=== PATIENT | female | born 1955 | race Caucasian/White ===

== ENCOUNTER 2020-01-03 14:53 | IRF | payer MEDICARE, MEDICAID, SELFPAY ==
--- NOTE | ~2020-01-03 | XR_ITS ---
EXAMINATION: XR chest 2V DATE: 01/12/2020 11:15 INDICATION: Crackles, recent open heart surgery TECHNIQUE: AP and lateral views of the chest are obtained. COMPARISON: 01/03/2020 FINDINGS: Airspace linear airspace opacity of the left upper lobe persists without significant change . There is also linear opacity in the right lower lobe. No pleural effusion or pneumothorax is identi fied. Median sternotomy wires and mediastinal surgical clips are seen, likely from prior coronary art carey bypass grafting. Cholecystectomy clips are noted. There are healed left-sided rib fractures. Ther e is moderate thoracic spondylosis. IMPRESSION: 1. Linear airspace opacities of the left upper lobe and right lower lobe, consistent with atelectasis . Reviewed, dictated and finalized at location A. IMPRESSION: 1. Linear airspace opacities of the left upper lobe and right lower lobe, consi stent with atelectasis.
--- NOTE | ~2020-01-03 | XR_ITS ---
XR chest 1V portable 01/03/2020 20:30 Indication: PICC line placement. Recent heart surgery. Procedure: AP portable chest Comparison: Comparison to multiple prior studies sequentially, with oldest reviewed study dated 12/2008. Findings: Cardiomegaly. Status post median sternotomy for CABG. Central venous catheter tip in the le ft subclavian vein. There is left perihilar and bibasilar airspace disease. No pleural effusion or pn eumothorax. Impression: 1: Left perihilar and bibasilar airspace disease, suspicious for pneumonia. 2: Central venous catheter tip in the left subclavian vein. 3: Cardiomegaly. Reviewed, dictated and finalized at location A. Impression: 1: Left perihilar and bibasilar airspace disease, suspicious for pneumonia. 2: Central venous catheter tip in the left subclavian vein. 3: Cardiomegaly.
[2020-01-03 14:53] VITALS: BP 117/70; PULSE 92; RESP 20; TEMP 36.8; O2SAT 97; BMI 23.3
--- NOTE | 2020-01-03 14:55 | ADMGEN ---
This patient, Queenie Ambriz, was admitted to [facility] Room 221-02. Patient/family oriented to hospital policies and general routines including ID bracelet, bed and alarms, visiting hours, pain management, procedures, bathroom and other care routines, personal items, smoking policy, room service/diet, and visiting hours. Valuables list has been completed. Information on how to activate the Rapid Response Team has been discussed. Patient/Family are encouraged to report perceived risks to care and to ask questions if they do not understand what they are told or what they should do.
--- NOTE | 2020-01-03 15:54 | PC.NURSE ---
Called [facility] at [phone] at [phone] regarding cardiology consult for patient. [place] stated to fax request to [phone] Tabitha Ramachandran was currently bonderizer operator. Faxed request at [phone] this date.
[2020-01-03 19:20] VITALS: O2SAT 97
[2020-01-03] MEDS: QUEtiapine FUMARATE 100 MG TABLET 400 MG PO (21:29)
[2020-01-03] MEDS: MICONAZOLE NITRATE 2% CREAM 30 GM TUBE 1 APPLIC TOPICAL (21:29)
[2020-01-03] MEDS: clonazePAM 0.5 MG TABLET 1 MG PO (21:29)
[2020-01-03] MEDS: ENOXAPARIN 40 MG/0.4 ML SYRINGE SUB-Q (21:29)
[2020-01-03] MEDS: MELATONIN 3 MG TABLET 6 MG PO (21:29)
[2020-01-03] MEDS: CYCLOBENZAPRINE HCL 5 MG TABLET PO (21:30)
[2020-01-03] MEDS: NAPROXEN 500 MG TABLET PO (21:30)
[2020-01-03] MEDS: busPIRone HCL 5 MG TABLET 15 MG PO (21:31)
[2020-01-03] MEDS: metFORMIN HCL 500 MG TABLET PO (21:31)
[2020-01-03] MEDS: GABAPENTIN 400 MG CAPSULE 800 MG PO (21:31)
[2020-01-03] MEDS: guaiFENesin 12 HR 600 MG TABCR PO (21:32)
[2020-01-03 21:55] VITALS: BP 126/74; PULSE 78; RESP 18; TEMP 35.5; O2SAT 98
[2020-01-04 04:47] LABS: Add Urine Microscopic? YES; Appearance Urine Clear (Clear); Bacteria Urine Trace /hpf; Bilirubin Urine Negative (Negative); Blood Urine 2+ (Negative); Color Urine Yellow (Yellow); Glucose Urine UA Negative (Negative); Ketones Urine Negative (Negative); Leukocyte Esterase Ur 2+ LEU/UL (Negative); Mucus Urine Rare /lpf; Nitrate Urine Negative (Negative); Protein Urine Negative (Negative); Specific Grav Ur 1.012 (1.001-1.035); Urobilinogen Urine Negative mg/dL (<2.0); WBC Urine 21-30 /hpf
[2020-01-04 05:29] LABS: Basophils Absolute Auto 0.1 K/mm3 (0.0-0.1); Eosinophils Absolute Auto 0.4 K/mm3 (0-0.3); Eosinophils Percent Auto 4.4 % (0-4.4); Hematocrit 28.4 % (37.0-47.0); Hemoglobin 8.5 g/dL (12.0-15.0); Immature Granulocyte Absolute 0.37 K/mm3 (0.00-0.031); Immature Granulocyte Percent A 4.5 % (0-0.5); Lymphocytes Absolute Auto 2.38 K/mm3 (0.9-3.2); Mean Corpuscular HGB Conc 29.9 g/dl (32-36); Mean Corpuscular Hemoglobin 26.6 pg (26-34); Mean Platelet Volume 8.9 fl (7.4-10.4); Monocytes Absolute Auto 0.7 K/mm3 (0.1-0.6); Monocytes Percent Auto 8.9 % (2.6-8.5); Neutrophils Absolute Auto 4.3 K/mm3 (1.3-6.7); Neutrophils Percent Auto 52.2 % (45.5-73.1); Platelet Count Result 267 k/mm3 (150-375); Red Blood Count 3.19 M/mm3 (4.2-5.4); Red Cell Distribution Width 17.8 % (11.5-14.5); White Blood Count 8.2 K/mm3 (4.5-10.0)
[2020-01-04 05:37] VITALS: BP 96/54; PULSE 78; RESP 18; TEMP 35.2; O2SAT 98
[2020-01-04 05:43] LABS: Macrocytosis 1+ (NORMAL); Platelet Estimate Adequate (Adequate)
[2020-01-04 05:44] LABS: Hypochromasia 1+ (NORMAL); Microcytosis 1+ (NORMAL)
[2020-01-04 05:45] LABS: Anion Gap 8 mmol/L (8-16); Blood Urea Nitrogen 65 mg/dL (7-17); Calcium 9.4 mg/dL (8.4-10.2); Carbon Dioxide 34 mmol/L (22-30); Chloride 92 mmol/L (98-107); Estimated CRCL calculation 40 ml/min; Estimated Glomerular Filt Rate 56; Glucose 98 mg/dL (65-105); Potassium 4.1 mmol/L (3.4-5.0); Sodium 134 mmol/L (137-145)
[2020-01-04] MEDS: busPIRone HCL 5 MG TABLET 15 MG PO ×3 (05:51→21:49)
[2020-01-04 08:00] VITALS: O2SAT 98
[2020-01-04] MEDS: metFORMIN HCL 500 MG TABLET PO ×2 (08:47→17:23)
[2020-01-04] MEDS: FUROSEMIDE 40 MG TABLET PO (08:48)
[2020-01-04] MEDS: NAPROXEN 500 MG TABLET PO ×2 (08:48→17:23)
[2020-01-04] MEDS: EZETIMIBE 10 MG TABLET PO (08:48)
[2020-01-04] MEDS: SPIRONOLACTONE 25 MG TABLET PO (08:49)
[2020-01-04] MEDS: SERTRALINE HCL 50 MG TABLET 100 MG PO (08:49)
[2020-01-04] MEDS: QUEtiapine FUMARATE 100 MG TABLET 400 MG PO ×2 (08:49→21:49)
[2020-01-04] MEDS: guaiFENesin 12 HR 600 MG TABCR PO ×2 (08:49→21:50)
[2020-01-04 08:50] VITALS: PULSE 76
[2020-01-04] MEDS: AMIODARONE HCL 200 MG TABLET PO (08:50)
[2020-01-04] MEDS: GABAPENTIN 400 MG CAPSULE 800 MG PO ×3 (08:50→17:23)
[2020-01-04] MEDS: MICONAZOLE NITRATE 2% CREAM 30 GM TUBE 1 APPLIC TOPICAL ×2 (08:51→21:50)
[2020-01-04] MEDS: COD LIVER OIL/ZINC OXIDE OINT 30 GM 1 APPLIC TOPICAL (08:51)
[2020-01-04] MEDS: MIDODRINE HCL 10 MG TABLET PO ×3 (08:51→17:23)
[2020-01-04] MEDS: CHOLECALCIFEROL 1,000 UNITS TABLET 1000 UNITS PO (09:19)
--- NOTE | 2020-01-04 10:00 | WPDREHABHP ---
H&P: HPI History of Present Illness Date/Time: 01/04/20 13:02 Chief complaint: ACUUTE HYPOXEMIA RESPIRATORY FAILURE Narrative: Queenie Ambriz is a 64 year old female HISTORY OF PRESENT ILLNESS: The patient's primary rehab impairment category is Fifteen-pulmonary The etiologic diagnosis is status post acute hypoxemic respiratory failure I saw this patient [id number] on January 04, 2020 at 10:00 a.m. The patient is a 64-year-old right-handed woman with a past medical history of chronic obstructive pulmonary disease, diabetes mellitus type 2, emphysema, pulmonary fibrosis, depression, and hypertension who presented to local [facility] with increased shortness of breath. According to her daughter that was the [facility] when she presented initially which was a few weeks ago. The patient was found to have a pericardial effusion. She was transferred to a tertiary hospital where a pericardial window was performed. She also had a right-sided pleural effusion and chest tube was placed. She was stabilized and transferred to [facility] for continuation of medical management on December 20, 2019. The patient's hospitalization was significant for acute respiratory failure, pleural effusion, pericardial effusion, atrial fibrillation, uncontrolled diabetes mellitus, chronic pain due to spinal stenosis, congestive heart failure with diastolic dysfunction, depression, hyperlipidemia, vitamin-D deficiency and generalized weakness from prolonged hospitalization. The patient's chest tube was removed on December 26, 2019. Oxygen has been weaned as tolerated and currently on 2 liters of nasal cannula and she is receiving p.r.n. nebulized bronchodilator. Atrial fibrillation is being managed with the amiodarone and she also is on midodrine which most likely is for postural hypotension. She is on spironolactone to manage congestive heart failure and edema. The patient was placed on sliding-scale insulin to control hyperglycemia in the setting of steroid use. Depression has been going for 40 years the patient has never been hospitalized for this and is on rather large doses of Seroquel and BuSpar at home. Hyperlipidemia is being treated with Zetia. She requires a physical and occupational therapy to increase her and independence with ADLs functional transfers and mobility. She is on subcutaneous Lovenox for DVT prophylaxis. Therapy was initiated at the acute care facility and the patient transferred to us from [facility] on January 03, 2020 The patient has not traveled outside the [place] or had contact with someone who is ill that has traveled outside the [place] in the past 21 days. The patient has not traveled to an area of the [place] that is experiencing no transmission of the Coronavirus and has not had close personal contact with anyone that has. The patient does not have a fever. The patient is not experiencing low respiratory illness symptoms. FALLS OR SURGERIES: The patient has had major surgeries in the 100 days prior to admission. They had no falls in the past year. They had no falls with injury in the past year. PAST MEDICAL HISTORY: Pericardial effusion, chronic obstructive pulmonary disease, obstructive sleep apnea, [id number] diabetes mellitus, hypertension, cervical spine stenosis, chronic pain syndrome, anemia, atrial fibrillation, congestive heart failure and sacral stenosis. Patient's daughter mentions that the patient has taken in the past narcotic analgesic and at times has abused she also mentions that she has suffered from longstanding depression which I see she is on large doses of Seroquel PAST SURGICAL HISTORY: hysterectomy, cholecystectomy, shoulder surgery, ankle surgery, hip surgery, and recent pericardial window the scar of which is visible on physical examination SOCIAL HISTORY: patient is . Lives with sons in [facility]. She has 3 sons 4 grandchil
[2020-01-04 13:22] VITALS: BMI 23.3
[2020-01-04 13:49] LABS: Glucose Point of Care 106 (65-105)
[2020-01-04] MEDS: NITROFURANTOIN MONOHYD MACROCR 100 MG CAP PO ×2 (13:59→22:18)
[2020-01-04 14:00] VITALS: BP 101/61; PULSE 97; RESP 18; TEMP 36.4; O2SAT 100
--- NOTE | 2020-01-04 14:29 | WPDCN ---
Assessment and Plan Assessment and plan (1) Pericardial effusion: Code(s): I31.3 - Pericardial effusion (noninflammatory) Status: Acute Assessment and Plan: Patient had terrible problems with recurrent pericardial effusions in the setting of pneumonia ultimately requiring pericardiectomy, and even with that had prolonged drainage from the chest tube. Cytology negative, thought to be inflammatory in nature. Taking naproxen as an anti-inflammatory. No evidence of recurrence. Overall the patient appears stable and euvolemic. Chest x-ray looks relatively good. Agree with current medications. Follow electrolytes periodically. Will follow with you. Thank you for your consult. (2) H/O pericardiectomy: Code(s): Z98.890 - Other specified postprocedural states Status: Acute Assessment and Plan: sternal wound is well healed (3) Pleural effusion: Code(s): J90 - Pleural effusion, not elsewhere classified Status: Acute Assessment and Plan: Recurrent parapneumonic pleural effusions treated with chest tube drainage Resolved . (4) Congestive heart failure with left ventricular diastolic dysfunction: Code(s): I50.30 - Unspecified diastolic (congestive) heart failure Status: Acute Assessment and Plan: History of diastolic heart failure. Euvolemic taking spironolactone and furosemide 40 mg daily. (5) Chronic obstructive pulmonary disease: Code(s): J44.9 - Chronic obstructive pulmonary disease, unspecified Status: Acute Assessment and Plan: COPD and pulmonary fibrosis, currently on O2. (6) Encephalopathy: Code(s): G93.40 - Encephalopathy, unspecified Status: Acute Assessment and Plan: Encephalopathy. (7) PAF (paroxysmal atrial fibrillation): Code(s): I48.0 - Paroxysmal atrial fibrillation Status: Acute Assessment and Plan: History of at least 1 episode of AFib during hospitalizations, treated with amiodarone and in sinus rhythm. Anticoagulation is being avoided because of pericarditis. (8) Low blood pressure: Code(s): I95.9 - Hypotension, unspecified Status: Acute Assessment and Plan: Blood pressure is acceptable on midodrine. Hopefully will improve with time. HPI Data of Consult Date/Time: 01/04/20 14:29 Requesting Physician: Juan Peace MD Primary Care Provider: UNKNOWN,DOCTOR Consult Narrative Narrative: Date of service: 01/04/2020 Queenie Ambriz is a 64 year old female whom we were asked to see at the request of Dr. Peace for advice and opinion regarding ongoing care of her pericardectomy for recurrent pericardial effusions. The patient presented to [facility] shortness of breath, left lower lobe pneumonia, small bowel obstruction and pericardial effusion November 14. She had a pericardial drain placed on November 16. She was transferred to [facility] on November 17 further care. She had a pericardial window placed for recurrent pericardial effusion, and eventually had a pericardiectomy December 01, 2019 for recurrent pericardial effusion. She also had a right thoracentesis on 11/30/2019 (transudative) for pleural effusions. Cytology was negative, pericardial fluid was inflammatory/also described as purulent. She was treated with anti-inflammatory meds. Apparently because the pericardial tube And the chest tube continued to drain for a week she was transferred to [facility] where the chest tube was pulled, and then transferred to [facility] for rehab. She has had CHF; She had at least 1 episode of atrial fibrillation treated with amiodarone and previously metoprolol during the recent hospitalizations. Ant
[2020-01-04 20:10] VITALS: O2SAT 92
[2020-01-04] MEDS: MELATONIN 3 MG TABLET 6 MG PO (21:50)
[2020-01-04] MEDS: clonazePAM 0.5 MG TABLET 1 MG PO (21:50)
[2020-01-04] MEDS: ENOXAPARIN 40 MG/0.4 ML SYRINGE SUB-Q (21:50)
[2020-01-04] MEDS: CYCLOBENZAPRINE HCL 5 MG TABLET PO (21:51)
[2020-01-04 22:00] VITALS: BP 101/48; PULSE 91; RESP 18; TEMP 36.2; O2SAT 96
--- NOTE | 2020-01-05 02:52 | PC.NURSE ---
pt noted to have very long toe nails that are intact at this time.
[2020-01-05] MEDS: busPIRone HCL 5 MG TABLET 15 MG PO ×3 (05:20→21:10)
[2020-01-05 06:00] VITALS: BP 100/62; PULSE 76; RESP 20; TEMP 36.6; O2SAT 100
[2020-01-05 06:57] LABS: Glucose Point of Care 112 (65-105)
[2020-01-05 09:00] VITALS: O2SAT 94
[2020-01-05] MEDS: CHOLECALCIFEROL 1,000 UNITS TABLET 1000 UNITS PO (09:25)
[2020-01-05] MEDS: SPIRONOLACTONE 25 MG TABLET PO (09:25)
[2020-01-05] MEDS: NAPROXEN 500 MG TABLET PO ×2 (09:25→17:10)
[2020-01-05] MEDS: SERTRALINE HCL 50 MG TABLET 100 MG PO (09:25)
[2020-01-05] MEDS: metFORMIN HCL 500 MG TABLET PO ×2 (09:25→17:10)
[2020-01-05 09:26] VITALS: PULSE 90
[2020-01-05] MEDS: NITROFURANTOIN MONOHYD MACROCR 100 MG CAP PO ×2 (09:26→21:14)
[2020-01-05] MEDS: AMIODARONE HCL 200 MG TABLET PO (09:26)
[2020-01-05] MEDS: EZETIMIBE 10 MG TABLET PO (09:26)
[2020-01-05] MEDS: MICONAZOLE NITRATE 2% CREAM 30 GM TUBE 1 APPLIC TOPICAL ×2 (09:27→21:14)
[2020-01-05] MEDS: guaiFENesin 12 HR 600 MG TABCR PO ×2 (09:27→21:15)
[2020-01-05] MEDS: MIDODRINE HCL 10 MG TABLET PO ×3 (09:27→17:12)
[2020-01-05] MEDS: GABAPENTIN 400 MG CAPSULE 800 MG PO ×3 (09:27→17:10)
[2020-01-05] MEDS: QUEtiapine FUMARATE 100 MG TABLET 400 MG PO ×2 (09:28→21:11)
[2020-01-05 14:00] VITALS: BP 108/59; PULSE 89; RESP 20; TEMP 36.4; O2SAT 99
--- NOTE | 2020-01-05 16:09 | RPD ---
INDIVIDUALIZED PLAN OF CARE FOR Queenie Ambriz Brief Synthesis of Pre-Admission Screen, Post-Admission Evaluation and Therapy Evaluations: The patient presents to rehab with acute hypoxemic respiratory failure. Comorbidities include right pneumothorax, pleural effusion, pericardial effusion with tamponade, severe chronic obstructive pulmonary disease, chronic systolic heart failure, secondary pulmonary hypertension, uncontrolled diabetes mellitus, emphysema, pulmonary fibrosis, pericardial window, depression, chest tube insertion and removal, atrial fibrillation, chronic pain due to spinal stenosis, congestive heart failure with diastolic dysfunction, hyperlipidemia, vitamin D deficiency, and generalized weakness. The patient?s needs will be best met in an intensive program vs. at a lower level of care. The patient requires physician services for medical oversight, management of post-procedure complications in setting of present comorbidities, and pain management. The patient requires nursing services for anticoagulation therapy, diabetes training, DVT prophylactics, infection protection, medication management and education, pressure relief, and wound care. Deficits include:ADLs, Balance, Endurance, Family Training/Education, Mobility, Pain Management, ROM, Safety, Strength, and Transfers Extension Service Specialist/Case Management for: Discharge Planning and Patient/Family Counseling Physical Therapy: 5 days per week for 90 minutes. Treatments may include: Therapeutic Exercise, Gait Training, Neuromuscular Re-education, Transfer Training, Community Reintegration, Bed Mobility, Patient/Family Education, Wheelchair Mobility Group Therapy/Concurrent Therapy Rationales: -Improve attention span during functional activities in a distracted environment. -Enhance problem solving and/or adequate judgment skills during functional activities in a distracted environment. -Promote increased safety awareness in a distracted environment to reduce fall risk with functional tasks, transfers, and ambulation to allow a more safe, self-sufficient return to the home environment. -Improve dynamic balance skills to promote safety and independence with functional activities in a distracted environment for maximum gain. Occupational Therapy: 5 days per week for 90 minutes. Treatments may include: Therapeutic Exercise, Therapeutic Activity, Cognitive Training, Self-Care Transfer Training, Community Reintegration, Home Management, Patient/Family Education, Wheelchair Mobility Training, Energy Conservation Training Group Therapy/Concurrent Therapy Rationales: -Allow therapist to observe and teach generalization and carry-over of skills learned in individual therapy. -Enhance problem solving and sequencing skills during therapeutic activities in a distracted environment. -Promote increased safety awareness in a realistic setting to reduce fall risk with functional tasks due to visual and verbal distractions. -Increase functional level with ADLs, ADL transfers and use of adaptive equipment through therapeutic activities with others while promoting safety to allow a more safe, self-sufficient return home. Medical Prognosis: Good Anticipated Length of Stay: 10 days Rehab Goals: Eating Goal: 06-Independent Oral Hygiene Goal: 06-Independent Toileting Hygiene Goal: 06-Independent Shower/Bathe Self Goal: 05-Setup or Clean Up Assistance Upper Body Dressing Goal: 05-Setup or Clean Up Assistance Lower Body Dressing Goal: 05-Setup or Clean Up Assistance Putting On/Taking Off Footwear Goal: 05-Setup or Clean Up Assistance Rolling Left and Right Goal: 06-Independent Sit to Lying Goal: 06-Independent Lying to Sitting on Side of Bed Goal: 06-Independent Sit to Stand Goal: 06-Independent Chair/Cwb-xm-Kjqly Transfer Goal: 06-Independent Toilet Transfer Goal: 06-Independent Car Transfer Goal: 06-Independent Walk 10' Goal: 06-Independent Walk 50' with Two Turns Goal: 04-Supervision or Touching Assistance Walk
[2020-01-05 17:06] LABS: Glucose Point of Care 88 (65-105)
--- NOTE | 2020-01-05 18:54 | PC.NURSE ---
Melara cath was removed this afternoon without difficulty, Queenie voided on the toilet afterwards with no c/o of discomfort.
[2020-01-05] MEDS: MELATONIN 3 MG TABLET 6 MG PO (21:14)
[2020-01-05] MEDS: ENOXAPARIN 40 MG/0.4 ML SYRINGE SUB-Q (21:15)
[2020-01-05] MEDS: CYCLOBENZAPRINE HCL 5 MG TABLET PO (21:15)
[2020-01-05] MEDS: SALINE LOCK FLUSH 10 ML IV PUSH (21:16)
[2020-01-05] MEDS: clonazePAM 0.5 MG TABLET 1 MG PO (21:19)
[2020-01-05 21:59] VITALS: BP 94/57; PULSE 85; RESP 20; TEMP 36.4; O2SAT 94
[2020-01-06 02:48] LABS: Glucose Point of Care 84 (65-105)
[2020-01-06] MEDS: busPIRone HCL 5 MG TABLET 15 MG PO ×3 (05:14→21:09)
[2020-01-06] MEDS: SALINE LOCK FLUSH 10 ML IV PUSH ×3 (05:15→21:11)
[2020-01-06 05:43] VITALS: BP 104/71; PULSE 117; RESP 20; TEMP 36.2; O2SAT 99
[2020-01-06 06:15] LABS: Glucose Point of Care 96 (65-105)
[2020-01-06 09:30] VITALS: O2SAT 94
[2020-01-06 09:31] LABS: Anion Gap 8 mmol/L (8-16); Blood Urea Nitrogen 58 mg/dL (7-17); Calcium 9.9 mg/dL (8.4-10.2); Carbon Dioxide 32 mmol/L (22-30); Chloride 96 mmol/L (98-107); Estimated CRCL calculation 44 ml/min; Estimated Glomerular Filt Rate > 60; Glucose 110 mg/dL (65-105); Potassium 4.8 mmol/L (3.4-5.0); Sodium 136 mmol/L (137-145)
[2020-01-06] MEDS: QUEtiapine FUMARATE 100 MG TABLET 400 MG PO ×2 (09:31→21:10)
[2020-01-06] MEDS: GABAPENTIN 400 MG CAPSULE 800 MG PO ×3 (09:31→18:52)
[2020-01-06] MEDS: metFORMIN HCL 500 MG TABLET PO ×2 (09:31→18:52)
[2020-01-06] MEDS: MIDODRINE HCL 10 MG TABLET PO ×3 (09:31→18:52)
[2020-01-06] MEDS: FUROSEMIDE 20 MG TABLET PO (09:31)
[2020-01-06 09:32] VITALS: PULSE 72
[2020-01-06] MEDS: guaiFENesin 12 HR 600 MG TABCR PO ×2 (09:32→21:07)
[2020-01-06] MEDS: CHOLECALCIFEROL 1,000 UNITS TABLET 1000 UNITS PO (09:32)
[2020-01-06] MEDS: AMIODARONE HCL 200 MG TABLET PO (09:32)
[2020-01-06] MEDS: SPIRONOLACTONE 25 MG TABLET PO (09:32)
[2020-01-06] MEDS: SERTRALINE HCL 50 MG TABLET 100 MG PO (09:32)
[2020-01-06] MEDS: NAPROXEN 500 MG TABLET PO ×2 (09:33→18:53)
[2020-01-06] MEDS: MICONAZOLE NITRATE 2% CREAM 30 GM TUBE 1 APPLIC TOPICAL ×2 (09:33→21:21)
[2020-01-06] MEDS: NITROFURANTOIN MONOHYD MACROCR 100 MG CAP PO (09:33)
[2020-01-06] MEDS: EZETIMIBE 10 MG TABLET PO (09:33)
--- NOTE | 2020-01-06 12:18 | WPDNEURORHBP ---
Subjective Date/time seen: 01/06/20 12:18 Interval history: this 64-year-old woman with a background history of psychiatric illness is here after suffering from acute hypoxemia and respiratory failure from which she is recuperating she is wearing 2 liters of oxygen she has real relatively anxious the urinalysis was suspicious for the urinary tract infection however it only grew yeast her catheter has been removed and she is urinating fairly well She denies any headache nausea vomiting chest pain shortness of breath fever chills sore throat Review of Systems Review of Systems: All systems reviewed & are unremarkable except as noted in HPI and below Functional Status Ambulation Ability Ability to Ambulate 10 Feet: Contact Guard Ability to Ambulate 50 Feet With 2 Turns: Minimum Assistance X 1 Ambulation Assistive Devices: Walker, Wheeled Exam Const: General: comfortable and no acute distress HENMT: General nose exam: Normal nares present Mouth: Yes moist mucous membranes Eyes: General: appearance normal, both eyes and all related structures Neck: Neck: supple and no JVD Resp: Other: generalize rhonchi bilaterally but better Cardio: Rate: regular rate Rhythm: regular rhythm GI: GI Palp: Yes Soft to palpation Auscultation: normal bowel sounds Skin: General skin exam: normal color and no rashes or lesions noted Neuro: Other: patient is awake and alert well oriented anxious as usual which probably is her baseline in spite of being on rather large dose of Seroquel she is able to tell me who her psychiatrist is and why she is on Seroquel Extrem: General: normal to inspection Psych: Mental Status: mental status grossly normal Objective Data Vital Signs Vital Signs: Vital Signs - 24 hr 01/05/20 14:00 01/05/20 21:59 01/06/20 05:43 Temperature 36.4 C L 36.4 C 36.2 C L Pulse Rate 89 85 117 H Respiratory Rate 20 20 20 Blood Pressure 108/59 L 94/57 L 104/71 Pulse Oximetry 99 94 99 01/06/20 09:32 Temperature Pulse Rate 72 Respiratory Rate Blood Pressure Pulse Oximetry Intake/Output Intake/Output: Intake & Output 01/03/20 01/04/20 01/05/20 01/06/20 23:59 23:59 23:59 23:59 Intake Total 360 2280 820 430 Output Total 3750 600 Balance 360 -1470 220 430 Meds/Results Medications: Active Medications Generic Name Dose Route Start Last Admin Trade Name Freq PRN Reason Stop Dose Admin Acetaminophen 325 mg 01/03/20 17:43 Tylenol Tablet PO Q4H PRN Mild Pain (1-3) or Fever Albuterol 1 puff 01/03/20 18:00 Proventil Hfa INHALATION Q6H PRN Shortness Of Breath Or Wheezing Amiodarone HCl 200 mg 01/04/20 08:00 01/06/20 09:32 Pacerone PO 200 mg DAILY@0800 PRIYA Administration Bisacodyl 10 mg 01/03/20 16:55 Dulcolax Suppository RECTAL QAM PRN Constipation Buspirone HCl 15 mg 01/03/20 22:00 01/06/20 05:14 Buspar PO 15 mg Q8HR PRIYA Administration Clonazepam 1 mg 01/03/20 21:00 01/05/20 21:19 Klonopin Tablet PO 1 mg HS PRIYA Administration Cyclobenzaprine HCl 5 mg 01/03/20 21:00 01/05/20 21:15 Flexeril PO 5 mg HS PRYIA Administration Dextrose 12.5 gm 01/04/20 13:09 Dextrose 50% Syringe IV PUSH PRN PRN Hypoglycemia Protocol Ezetimibe 10 mg 01/04/20 09:00 01/06/20 09:33 Zetia PO 10 mg QAM PRIYA Administration Enoxaparin Sodium 40 mg 01/03/20 21:00 01/05/20 21:15 Lovenox SUB-Q 40 mg HS PRIYA Administration Furosemide 20 mg 01/06/20 09:00 01/06/20 09:31 Lasix Tablet PO 20 mg DAILY PRIYA Administration Gabapentin 800 mg 01/03/20 17:00 01/06/20 09:31 Neurontin PO 800 mg TID PRIYA Administration Glucagon 1 mg 01/04/20 13:09 Glucagon For Inj IM PRN PRN Hypoglycemia Protocol Glucose 15 gm 01/04/20 13:09 Glutose 15 PO PRN PRN Hypoglycemia Protocol Guaifenesin 600 mg 01/03/20 21:00 01/06/20 09:32 Mucinex 12 Hr
[2020-01-06 14:00] VITALS: BP 102/63; PULSE 83; RESP 20; TEMP 36.3; O2SAT 100
[2020-01-06 20:43] VITALS: BP 94/73; PULSE 78; RESP 18; TEMP 36.7; O2SAT 90
[2020-01-06] MEDS: clonazePAM 0.5 MG TABLET 1 MG PO (21:07)
[2020-01-06] MEDS: CYCLOBENZAPRINE HCL 5 MG TABLET PO (21:09)
[2020-01-06] MEDS: MELATONIN 3 MG TABLET 6 MG PO (21:09)
[2020-01-06] MEDS: ENOXAPARIN 40 MG/0.4 ML SYRINGE SUB-Q (21:10)
[2020-01-07] MEDS: busPIRone HCL 5 MG TABLET 15 MG PO ×3 (05:48→20:40)
[2020-01-07] MEDS: SALINE LOCK FLUSH 10 ML IV PUSH ×3 (05:49→20:50)
[2020-01-07 06:00] VITALS: BP 99/55; PULSE 78; RESP 12; TEMP 36.4; O2SAT 99
[2020-01-07 06:53] LABS: Glucose Point of Care 69 (65-105)
[2020-01-07 09:05] VITALS: PULSE 78
[2020-01-07] MEDS: AMIODARONE HCL 200 MG TABLET PO (09:05)
[2020-01-07] MEDS: metFORMIN HCL 500 MG TABLET PO ×2 (09:05→17:49)
[2020-01-07] MEDS: CHOLECALCIFEROL 1,000 UNITS TABLET 1000 UNITS PO (09:06)
[2020-01-07] MEDS: NAPROXEN 500 MG TABLET PO ×2 (09:06→17:50)
[2020-01-07] MEDS: FUROSEMIDE 20 MG TABLET PO (09:06)
[2020-01-07] MEDS: EZETIMIBE 10 MG TABLET PO (09:06)
[2020-01-07] MEDS: GABAPENTIN 400 MG CAPSULE 800 MG PO ×3 (09:06→17:49)
[2020-01-07] MEDS: guaiFENesin 12 HR 600 MG TABCR PO ×2 (09:07→20:40)
[2020-01-07] MEDS: MIDODRINE HCL 10 MG TABLET PO ×3 (09:07→17:49)
[2020-01-07] MEDS: QUEtiapine FUMARATE 100 MG TABLET 400 MG PO ×2 (09:07→20:40)
[2020-01-07] MEDS: MICONAZOLE NITRATE 2% CREAM 30 GM TUBE 1 APPLIC TOPICAL ×2 (09:07→20:49)
[2020-01-07] MEDS: SERTRALINE HCL 50 MG TABLET 100 MG PO (09:07)
[2020-01-07] MEDS: SPIRONOLACTONE 25 MG TABLET PO (09:08)
[2020-01-07 14:00] VITALS: BP 108/64; PULSE 91; RESP 16; TEMP 36.4; O2SAT 100
[2020-01-07 16:54] LABS: Glucose Point of Care 108 (65-105)
[2020-01-07] MEDS: ENOXAPARIN 40 MG/0.4 ML SYRINGE SUB-Q (20:39)
[2020-01-07] MEDS: MELATONIN 3 MG TABLET 6 MG PO (20:39)
[2020-01-07] MEDS: CYCLOBENZAPRINE HCL 5 MG TABLET PO (20:39)
[2020-01-07] MEDS: clonazePAM 0.5 MG TABLET 1 MG PO (20:44)
[2020-01-07 21:51] VITALS: BP 128/61; PULSE 87; RESP 18; TEMP 36.5; O2SAT 99
[2020-01-08] MEDS: busPIRone HCL 5 MG TABLET 15 MG PO ×3 (05:57→21:55)
[2020-01-08] MEDS: SALINE LOCK FLUSH 10 ML IV PUSH ×3 (05:57→21:55)
[2020-01-08 06:08] VITALS: BP 100/54; PULSE 77; RESP 18; TEMP 36.3; O2SAT 100
[2020-01-08 06:47] LABS: Glucose Point of Care 89 (65-105)
[2020-01-08 08:42] VITALS: PULSE 77
[2020-01-08] MEDS: metFORMIN HCL 500 MG TABLET PO ×2 (08:42→18:56)
[2020-01-08] MEDS: AMIODARONE HCL 200 MG TABLET PO (08:42)
[2020-01-08] MEDS: FUROSEMIDE 20 MG TABLET PO (08:43)
[2020-01-08] MEDS: guaiFENesin 12 HR 600 MG TABCR PO ×2 (08:43→21:53)
[2020-01-08] MEDS: MICONAZOLE NITRATE 2% CREAM 30 GM TUBE 1 APPLIC TOPICAL ×2 (08:43→21:54)
[2020-01-08] MEDS: NAPROXEN 500 MG TABLET PO ×2 (08:43→18:56)
[2020-01-08] MEDS: EZETIMIBE 10 MG TABLET PO (08:43)
[2020-01-08] MEDS: MIDODRINE HCL 10 MG TABLET PO ×3 (08:43→18:56)
[2020-01-08] MEDS: CHOLECALCIFEROL 1,000 UNITS TABLET 1000 UNITS PO (08:43)
[2020-01-08] MEDS: GABAPENTIN 400 MG CAPSULE 800 MG PO ×3 (08:43→18:55)
[2020-01-08] MEDS: QUEtiapine FUMARATE 100 MG TABLET 400 MG PO ×2 (08:44→21:54)
[2020-01-08] MEDS: SERTRALINE HCL 50 MG TABLET 100 MG PO (08:44)
[2020-01-08] MEDS: SPIRONOLACTONE 25 MG TABLET PO (08:44)
--- NOTE | 2020-01-08 12:34 | WPDNEURORHBP ---
Subjective Date/time seen: 01/08/20 12:34 64 years old lady admitted to the rehab floor with acute hypoxemia and respiratory failure for which she is receiving 2L of oxygen course is complicated by her psych illness with ongoing fluctuating mental status on today's visit she was also complaining of left lower extremity discomfort Review of Systems Review of Systems: All systems reviewed & are unremarkable except as noted in HPI and below Functional Status Ambulation Ability Ability to Ambulate 10 Feet: Moderate Assistance X 1 Ability to Ambulate 50 Feet With 2 Turns: Minimum Assistance X 1 Ambulation Assistive Devices: Walker, Wheeled Transfers Ability Ability to Transfer In/Out of Chair: Minimum Assistance X 1 Exam Narrative: Exam Narrative: examination reveals her to be awake aler head normal neck normal ear nose throat examination normal with no drainage eye is normal with normal extraocular movements neck is supple with no meningeal signs no JVD heart regular with no murmur lungs clear to auscultation with no rhonchi or crepitations abdomen is soft with no organomegaly normal bowel sounds skin normal with no evidence of rash or skin lesions neurological is she is awake alert oriented in being in the hospital somewhat anxious and as mentioned above complaining of discomfort the movements of the left lower extremity and normal there is no obvious bruises or edema extremities otherwise normal and so as the mental statust Objective Data Vital Signs Vital Signs: Vital Signs - 24 hr 01/07/20 14:00 01/07/20 21:51 01/08/20 06:08 Temperature 36.4 C 36.5 C 36.3 C L Pulse Rate 91 87 77 Respiratory Rate 16 18 18 Blood Pressure 108/64 128/61 100/54 L Pulse Oximetry 100 99 100 01/08/20 08:42 Temperature Pulse Rate 77 Respiratory Rate Blood Pressure Pulse Oximetry Intake/Output Intake/Output: Intake & Output 01/05/20 01/06/20 01/07/20 01/08/20 23:59 23:59 23:59 23:59 Intake Total 291 425 5445 1190 Output Total 600 Balance 066 950 8445 1190 Meds/Results Medications: Active Medications Generic Name Dose Route Start Last Admin Trade Name Freq PRN Reason Stop Dose Admin Acetaminophen 325 mg 01/03/20 17:43 Tylenol Tablet PO Q4H PRN Mild Pain (1-3) or Fever Albuterol 1 puff 01/03/20 18:00 Proventil Hfa INHALATION Q6H PRN Shortness Of Breath Or Wheezing Amiodarone HCl 200 mg 01/04/20 08:00 01/08/20 08:42 Pacerone PO 200 mg DAILY@0800 PRIYA Administration Bisacodyl 10 mg 01/03/20 16:55 Dulcolax Suppository RECTAL QAM PRN Constipation Buspirone HCl 15 mg 01/03/20 22:00 01/08/20 05:57 Buspar PO 15 mg Q8HR PRIYA Administration Clonazepam 1 mg 01/03/20 21:00 01/07/20 20:44 Klonopin Tablet PO 1 mg HS PRIYA Administration Cyclobenzaprine HCl 5 mg 01/03/20 21:00 01/07/20 20:39 Flexeril PO 5 mg HS PRIYA Administration Dextrose 12.5 gm 01/04/20 13:09 Dextrose 50% Syringe IV PUSH PRN PRN Hypoglycemia Protocol Ezetimibe 10 mg 01/04/20 09:00 01/08/20 08:43 Zetia PO 10 mg QAM PRIYA Administration Enoxaparin Sodium 40 mg 01/03/20 21:00 01/07/20 20:39 Lovenox SUB-Q 40 mg HS PRIYA Administration Furosemide 20 mg 01/06/20 09:00 01/08/20 08:43 Lasix Tablet PO 20 mg DAILY PRIYA Administration Gabapentin 800 mg 01/03/20 17:00 01/08/20 08:43 Neurontin PO 800 mg TID PRIYA Administration Glucagon 1 mg 01/04/20 13:09 Glucagon For Inj IM PRN PRN Hypoglycemia Protocol Glucose 15 gm 01/04/20 13:09 Glutose 15 PO PRN PRN Hypoglycemia Protocol Guaifenesin 600 mg 01/03/20 21:00 01/08/20 08:43 Mucinex 12 Hr Tab PO 600 mg Q12HR PRIYA Administration Dextrose 1,000 mls @ 100 mls/hr 01/04/20 13:09 Dextrose 5% 1,000 Ml IVPB PRN PRN Hypoglycemia Protocol Melatonin 6 mg 01/03/20 21:00 01/07/20 20:39 Melatonin
[2020-01-08 14:00] VITALS: BP 114/64; PULSE 89; RESP 16; TEMP 36.6; O2SAT 100
[2020-01-08 14:43] VITALS: O2SAT 95
[2020-01-08 17:06] LABS: Glucose Point of Care 96 (65-105)
[2020-01-08] MEDS: MELATONIN 3 MG TABLET 6 MG PO (21:55)
[2020-01-08 22:00] VITALS: BP 112/60; PULSE 80; RESP 20; TEMP 36.6; O2SAT 100
[2020-01-08 23:21] VITALS: PULSE 78; O2SAT 93
[2020-01-09] MEDS: CYCLOBENZAPRINE HCL 5 MG TABLET PO ×2 (03:34→21:43)
[2020-01-09] MEDS: clonazePAM 0.5 MG TABLET 1 MG PO ×2 (03:34→21:43)
[2020-01-09] MEDS: busPIRone HCL 5 MG TABLET 15 MG PO ×3 (05:02→21:44)
[2020-01-09 05:28] LABS: Glucose Point of Care 92 (65-105)
[2020-01-09 06:00] VITALS: BP 126/66; PULSE 86; RESP 18; TEMP 36.5; O2SAT 94
[2020-01-09 08:30] VITALS: BP 119/56; PULSE 93; O2SAT 95
[2020-01-09] MEDS: QUEtiapine FUMARATE 100 MG TABLET 400 MG PO ×2 (08:46→21:43)
[2020-01-09] MEDS: metFORMIN HCL 500 MG TABLET PO ×2 (08:46→17:56)
[2020-01-09] MEDS: GABAPENTIN 400 MG CAPSULE 800 MG PO ×3 (08:47→17:56)
[2020-01-09] MEDS: FUROSEMIDE 20 MG TABLET PO (08:47)
[2020-01-09] MEDS: SPIRONOLACTONE 25 MG TABLET PO (08:47)
[2020-01-09] MEDS: MIDODRINE HCL 10 MG TABLET PO ×3 (08:47→17:57)
[2020-01-09] MEDS: NAPROXEN 500 MG TABLET PO ×2 (08:47→17:58)
[2020-01-09 08:48] VITALS: PULSE 86
[2020-01-09] MEDS: AMIODARONE HCL 200 MG TABLET PO (08:48)
[2020-01-09] MEDS: guaiFENesin 12 HR 600 MG TABCR PO ×2 (08:48→21:44)
[2020-01-09] MEDS: CHOLECALCIFEROL 1,000 UNITS TABLET 1000 UNITS PO (08:48)
[2020-01-09] MEDS: EZETIMIBE 10 MG TABLET PO (08:48)
[2020-01-09] MEDS: SERTRALINE HCL 50 MG TABLET 100 MG PO (08:49)
[2020-01-09 08:50] VITALS: PULSE 97; RESP 20; O2SAT 98
[2020-01-09] MEDS: MICONAZOLE NITRATE 2% CREAM 30 GM TUBE 1 APPLIC TOPICAL ×2 (08:50→21:47)
[2020-01-09] MEDS: SALINE LOCK FLUSH 10 ML IV PUSH ×3 (08:50→21:44)
--- NOTE | 2020-01-09 11:57 | WPDINFPN2 ---
Progress Note: A&P Assessment and Plan (1) Bacteriuria: Code(s): R82.71 - Bacteriuria Status: Acute Assessment and Plan: Bacteriuria, with incontinence but not with her typical cystitis symptoms of suprapubic and urethral pain, urgency, dysuria REC I/O cath for ua reflex culture, and treat accordingly Subjective Date/time seen: 01/09/20 11:57 Objective Data Vital Signs Vital Signs: Vital Signs - 24 hr 01/08/20 14:00 01/08/20 14:43 01/08/20 22:00 Temperature 36.6 C 36.6 C Pulse Rate 89 80 Respiratory Rate 16 20 Blood Pressure 114/64 112/60 Pulse Oximetry 100 95 100 01/08/20 23:21 01/09/20 06:00 01/09/20 08:30 Temperature 36.5 C Pulse Rate 78 86 93 Respiratory Rate 18 Blood Pressure 126/66 119/56 L Pulse Oximetry 93 94 95 01/09/20 08:48 Temperature Pulse Rate 86 Respiratory Rate Blood Pressure Pulse Oximetry Intake/Output Intake/Output: Intake & Output 01/06/20 01/07/20 01/08/20 01/09/20 23:59 23:59 23:59 23:59 Intake Total 910 1180 1630 240 Balance 910 1180 1630 240 Meds/Results Medications: Active Medications Generic Name Dose Route Start Last Admin Trade Name Freq PRN Reason Stop Dose Admin Acetaminophen 325 mg 01/03/20 17:43 Tylenol Tablet PO Q4H PRN Mild Pain (1-3) or Fever Albuterol 1 puff 01/03/20 18:00 Proventil Hfa INHALATION Q6H PRN Shortness Of Breath Or Wheezing Amiodarone HCl 200 mg 01/04/20 08:00 01/09/20 08:48 Pacerone PO 200 mg DAILY@0800 PRIYA Administration Bisacodyl 10 mg 01/03/20 16:55 Dulcolax Suppository RECTAL QAM PRN Constipation Buspirone HCl 15 mg 01/03/20 22:00 01/09/20 05:02 Buspar PO 15 mg Q8HR PRIYA Administration Clonazepam 1 mg 01/03/20 21:00 01/09/20 03:34 Klonopin Tablet PO 1 mg HS PRIYA Administration Cyclobenzaprine HCl 5 mg 01/03/20 21:00 01/09/20 03:34 Flexeril PO 5 mg HS PRIYA Administration Dextrose 12.5 gm 01/04/20 13:09 Dextrose 50% Syringe IV PUSH PRN PRN Hypoglycemia Protocol Ezetimibe 10 mg 01/04/20 09:00 01/09/20 08:48 Zetia PO 10 mg QAM PRIYA Administration Enoxaparin Sodium 40 mg 01/03/20 21:00 01/08/20 23:17 Lovenox SUB-Q Not Given HS PRIYA Furosemide 20 mg 01/06/20 09:00 01/09/20 08:47 Lasix Tablet PO 20 mg DAILY PRIYA Administration Gabapentin 800 mg 01/03/20 17:00 01/09/20 08:47 Neurontin PO 800 mg TID PRIYA Administration Glucagon 1 mg 01/04/20 13:09 Glucagon For Inj IM PRN PRN Hypoglycemia Protocol Glucose 15 gm 01/04/20 13:09 Glutose 15 PO PRN PRN Hypoglycemia Protocol Guaifenesin 600 mg 01/03/20 21:00 01/09/20 08:48 Mucinex 12 Hr Tab PO 600 mg Q12HR PRIYA Administration Dextrose 1,000 mls @ 100 mls/hr 01/04/20 13:09 Dextrose 5% 1,000 Ml IVPB PRN PRN Hypoglycemia Protocol Melatonin 6 mg 01/03/20 21:00 01/08/20 21:55 Melatonin PO 6 mg HS PRIYA Administration Metformin HCl 500 mg 01/03/20 17:00 01/09/20 08:46 Glucophage PO 500 mg BIDWM PRIYA Administration Miconazole Nitrate 1 applic 01/03/20 21:00 01/09/20 08:50 Miconazole Nitrate 2% Cream TOPICAL 1 applic Q12HR PRIYA Administration Midodrine 10 mg 01/03/20 17:00 01/09/20 08:47 Midodrine Hcl PO 10 mg TID PRIYA Administration Naproxen 500 mg 01/03/20 17:00 01/09/20 08:47 Naproxen PO 500 mg BIDWM PRIYA Administration Oxycodone HCl 5 mg 01/03/20 17:44 01/09/20 08:43 Roxicodone Ir Tablet PO 5 mg Q4H PRN Administration Pain Rated 7-10 Quetiapine Fumarate 400 mg 01/03/20 21:00 01/09/20 08:46 Seroquel PO 400 mg Q12HR PRIYA Administration Sertraline HCl 100 mg 01/04/20 09:00 01/09/20 08:49 Zoloft PO 100 mg DAILY PRIYA Administration Sodium Chloride 10 ml 01/05/20 22:00 01/09/20 08:50 Saline Lock Flush IV PUSH 10 ml Q8HR PRIYA
--- NOTE | 2020-01-09 12:42 | PM.PNCARD ---
Progress Note: A&P Additional Plan 64-year-old woman who had definitive pericardiac RIMA recently prior to transfer here for rehab. Procedure was done because of recurring pericardial effusions in the setting of 0 was felt to be pneumonia. She seems to be doing well is euvolemic and does not have any active cardiac problems at this time. We will see her p.r.n. while she is here at the rehab service Santos Henao MD [facility] Subjective Date/time seen: date of service:01/09/20 12:42 Interval history: Follow-up visit in this 64-year-old female who had recurrent pericardial effusions ultimately resulting in the need for pericardiectomy which was done at [facility] before being transferred here for rehab. Chest x-ray on admission did not show any pleural fluid. Patient seems to be stable today. She was in rehab earlier and is hoping to be discharged back to home. She does have a significant chronic COPD at baseline which is oxygen dependent. Exam Const: General: comfortable and no acute distress HENMT: Mouth: Yes dry mucous membranes Eyes: Pupils: Equal, round and reactive pupils present Neck: Neck: supple and no JVD Thyroid: thyroid normal Resp: Effort & Inspection: normal respiratory effort Auscultation: clear to auscultation bilaterally Other: Breath sounds are clear but markedly diminished in both lung goldberg Cardio: Rate: regular rate Rhythm: regular rhythm GI: Auscultation: normal bowel sounds Skin: General skin exam: normal color Neuro: Cognition (Neuro): normal cognition Extrem: General: normal to inspection Objective Data Vital Signs Vital Signs: Vital Signs - 24 hr 01/08/20 14:00 01/08/20 14:43 01/08/20 22:00 Temperature 36.6 C 36.6 C Pulse Rate 89 80 Respiratory Rate 16 20 Blood Pressure 114/64 112/60 Pulse Oximetry 100 95 100 01/08/20 23:21 01/09/20 06:00 01/09/20 08:30 Temperature 36.5 C Pulse Rate 78 86 93 Respiratory Rate 18 Blood Pressure 126/66 119/56 L Pulse Oximetry 93 94 95 01/09/20 08:48 Temperature Pulse Rate 86 Respiratory Rate Blood Pressure Pulse Oximetry Intake/Output Intake/Output: Intake & Output 01/06/20 01/07/20 01/08/20 01/09/20 23:59 23:59 23:59 23:59 Intake Total 910 1180 1630 240 Balance 910 1180 1630 240 Meds/Results Medications: Active Medications Generic Name Dose Route Start Last Admin Trade Name Freq PRN Reason Stop Dose Admin Acetaminophen 325 mg 01/03/20 17:43 Tylenol Tablet PO Q4H PRN Mild Pain (1-3) or Fever Albuterol 1 puff 01/03/20 18:00 Proventil Hfa INHALATION Q6H PRN Shortness Of Breath Or Wheezing Amiodarone HCl 200 mg 01/04/20 08:00 01/09/20 08:48 Pacerone PO 200 mg DAILY@0800 PRIYA Administration Bisacodyl 10 mg 01/03/20 16:55 Dulcolax Suppository RECTAL QAM PRN Constipation Buspirone HCl 15 mg 01/03/20 22:00 01/09/20 05:02 Buspar PO 15 mg Q8HR PRIYA Administration Clonazepam 1 mg 01/03/20 21:00 01/09/20 03:34 Klonopin Tablet PO 1 mg HS PRIYA Administration Cyclobenzaprine HCl 5 mg 01/03/20 21:00 01/09/20 03:34 Flexeril PO 5 mg HS PRIYA Administration Dextrose 12.5 gm 01/04/20 13:09 Dextrose 50% Syringe IV PUSH PRN PRN Hypoglycemia Protocol Ezetimibe 10 mg 01/04/20 09:00 01/09/20 08:48 Zetia PO 10 mg QAM PRIYA Administration Enoxaparin Sodium 40 mg 01/03/20 21:00 01/08/20 23:17 Lovenox SUB-Q Not Given HS PRIYA Furosemide 20 mg 01/06/20 09:00 01/09/20 08:47 Lasix Tablet PO 20 mg DAILY PRIYA Administration Gabapentin 800 mg 01/03/20 17:00 01/09/20 08:47 Neurontin PO 800 mg TID PRIYA Administration Glucagon 1 mg 01/04/20 13:09 Glucagon For Inj IM PRN PRN Hypoglycemia Protocol Glucose 15 gm 01/04/20 13:09 Glutose 15 PO PRN PRN Hypoglycemia Protocol Guaifenesin 600 mg 01/03/20 21:00 083
[2020-01-09 14:00] VITALS: BP 86/63; PULSE 97; RESP 20; TEMP 36.7; O2SAT 98
--- NOTE | 2020-01-09 14:33 | PCDIET ---
Nutrition Follow-Up Complete: Nutrition Diagnosis: Increased protein/calorie needs related to increased demands for healing as evidenced by need for oral supplementation, reported weight loss, buttock abrasion. Nutrition Goal: Patient to consume 75% of meals/supplements or greater. Goal met. Patient with ~75% of most meals consumed on diabetic, soft and bite size diet with Enlive TID and Jose Maria BID. Recommend stopping Jose Maria, as patient reportedly not taking. Would continue Ensure Enlive (350kcal, 20g protein) with meals. Patient out of room at time of visit. Last recorded weight is 57.8 kg. Recommend obtaining new weight. Bowel Motility: Last documented BM on 01/01/20. Discussed with RN. Reports patient had refused prune juice and denied constipation or GI c/o. Labs Reviewed: Glu (92) Meds Noted: Albuterol, Lasix, Glucophage, Midodrine, Seroquel, Aldactone, Vitamin D Additional Notes: Documented abrasions to buttocks and sacrum. No new skin issues reported. Will continue to monitor with same goal. If medically appropriate, would also consider medication to promote BM. Nutrition Monitoring and Evaluation: Follow up every 5 days.
--- NOTE | 2020-01-09 15:36 | CONS_ITS ---
DATE OF CONSULTATION: 01/09/2020 REASON FOR CONSULTATION: Abnormal UA. HISTORY OF PRESENT ILLNESS: The patient is a 64-year-old female who was originally admitted at [facility] earlier this month, where she was found to have pericardial effusion and had a pericardial window placed. She also had a chest tube for right pleural effusion, which was subsequently removed. She was transferred to [place] on December 19 and transferred to this unit on January 02. On arrival here, she had no antibiotics ongoing. Urinalysis was obtained shortly thereafter and consultation requested. We were not notified of the consult until 1 hour ago. The patient had noted urinary incontinence since arrival here in that she does not sense any urge to void. She had no previous kidney nor bladder surgery or other procedures. Knows of no stone disease. She does report frequent urinary tract infection in the past with symptoms including suprapubic pain radiating down into the vagina. Also urgency and on occasion, gross hematuria. She has not had any of those symptoms since arrival here. She did have a urinary catheter at that time she left [facility]. Records are not complete as far as when the catheter was removed and she is unaware herself. On arrival here, however, she had no urinary catheter in place. She does have some chest pain bilateral, but no true CVA pain and no flank pain. No fever, chills, or sweats. She has not received any antibiotics nor immunosuppressants while here. ALLERGIES: PENICILLIN, LEVOFLOXACIN, AND SULFA, ALL CAUSED UNKNOWN REACTIONS IN THE PAST. MEDICATIONS: Present medication list reviewed and includes sertraline. PAST MEDICAL HISTORY: Known COPD and chronic respiratory failure, hysterectomy, cholecystectomy, multiple joint surgery, KELSIE, type 2 diabetes mellitus, hypertension, cervical spine stenosis. Also sacral spine stenosis with chronic pain, anemia, AF, and depression. SOCIAL HISTORY: She is . No family at the bedside. Formerly was independent with a walker or cane. HABITS: Active tobacco. No illicit drugs. No alcohol to excess. REVIEW OF SYSTEMS: Some encephalopathy, which compromises review. Otherwise, 14-point review negative. FAMILY HISTORY: Not pertinent to present illness. PHYSICAL EXAMINATION: GENERAL: female who appears much older than her actual age, in no acute distress. VITAL SIGNS: Afebrile since arrival, 119/56, 93, 18, 95% on nasal cannula 3 L. SKIN: Warm and dry. No rashes. EENT: The conjunctivae are normal. The oropharynx, oral mucosa dry mucous membranes, otherwise normal. NECK: There is no meningismus, mass, asymmetry, thyromegaly. LUNGS: Diminished breath sounds throughout. Breath sounds are vesicular and clear to percussion. CHEST: Equal expansion. Normal AP diameter. Scars are well healed. No tubes in place. ABDOMEN: Soft, and nontender. No mass. No organomegaly. CARDIAC: Irregular, controlled rate. Grade 2/6 systolic flow murmur, lower left sternal border. EXTREMITIES: 1+ ankle edema. She has a a PICC in place, left upper extremity. RADIOLOGY: Chest x-ray with left lower lobe airspace disease and appropriate line in place. LABORATORY DATA: Urine culture from the day after arrival with VRE and yeast. Blood cultures, same time, no growth so far. White count 8.2, hemoglobin 8.5, platelets are 267. Her differential with no left shift. She has mild hyponatremia 136, CO2 is 32, BUN 58, creatinine 0.9. Blood sugars in the normal range. Urinalysis: Yellow clear, 7.0, 1.012. Dipstick positive for blood and leukocyte esterase, 6-10 red cells, 21 to 30 white cells, trace bacteria. Rare mucus. Her COVID assay was nonreactive shortly before transfer. ASSESSMENT: 1.
--- NOTE | 2020-01-09 16:05 | PCPTNOTE ---
Queenie Ambriz was evaluated for a wheeled walker on 01/09/2020 by this physical therapist front desk assistant. The wheeled walker will resolve patient's mobility limitations and will be used for ADL's within the home. The patient can safely use the wheeled walker. ?The wheeled walker will resolve the patient?s mobility deficits, including impaired balance, decreased strength and endurance.
[2020-01-09 16:26] LABS: Add Urine Microscopic? NO; Appearance Urine Clear (Clear); Bilirubin Urine Negative (Negative); Blood Urine Negative (Negative); Color Urine Straw (Yellow); Glucose Urine UA Negative (Negative); Ketones Urine Negative (Negative); Leukocyte Esterase Ur Negative LEU/UL (Negative); Nitrate Urine Negative (Negative); Protein Urine Negative (Negative); Specific Grav Ur 1.009 (1.001-1.035); Urobilinogen Urine Negative mg/dL (<2.0)
[2020-01-09 17:33] LABS: Glucose Point of Care 122 (65-105)
[2020-01-09] MEDS: MELATONIN 3 MG TABLET 6 MG PO (21:44)
[2020-01-09 22:00] VITALS: BP 117/67; PULSE 92; RESP 18; TEMP 36.6; O2SAT 96
[2020-01-09] MEDS: ENOXAPARIN 40 MG/0.4 ML SYRINGE SUB-Q (22:12)
[2020-01-10 06:00] VITALS: BP 118/62; PULSE 90; RESP 18; TEMP 36.2; O2SAT 95
[2020-01-10] MEDS: busPIRone HCL 5 MG TABLET 15 MG PO ×3 (06:19→20:42)
[2020-01-10] MEDS: SALINE LOCK FLUSH 10 ML IV PUSH ×3 (06:20→20:45)
[2020-01-10 06:26] LABS: Glucose Point of Care 93 (65-105)
[2020-01-10 08:36] VITALS: BP 115/63; PULSE 94; O2SAT 96
--- NOTE | 2020-01-10 09:50 | PCPTNOTE ---
Faiza Person PT completed an inpatient rehab wheelchair evaluation on Queenie Ambriz on 01/10/2020. The patient is unable to safely and independently ambulate household distances due to their current impairments. Their diagnosis is ACUUTE HYPOXEMIA RESPIRATORY FAILURE and their impairments include decreased strength, decreased endurance, decreased range of motion, decreased balance, lower extremity weakness, and ataxia. Queenie's weight bearing status is weight-bearing as tolerated on the bilateral lower legs. The patient demonstrates significant functional mobility limitations that impair their ability to participate in mobility-related activities of daily living (MRADLs), including toileting, feeding, dressing, grooming, and bathing in the customary locations in the home. These limitations cannot be sufficiently resolved by the use of an appropriately fitted cane or walker. It is recommended that the patient utilize a wheelchair for functional mobility within the home in order to facilitate optimal safety, independence and participation in all MRADL's and adequately access their home environment on a regular basis. The patient's home provides adequate access between rooms, maneuvering space, and surfaces to accommodate the recommended wheelchair. The use of a wheelchair for functional mobility is strongly recommended and the patient is receptive to using the wheelchair. The use of this wheelchair will significantly improve the patient's ability to participate in MRADLS and the patient will use it on a regular basis in the home. This will facilitate optimal safety, independence, and participation. The patient has demonstrated sufficient physical and mental capabilities needed to safely propel a manual wheelchair that is provided in the home during a typical day. Recommended Wheelchair Frame: standard Recommended Wheelchair Size: 18 x 18 Recommended Wheelchair Cushion: standard Wheelchair Leg Recommendations: detachable - Anti-tippers are recommended due to patient demonstrating increased risk for falls. They would benefit from anti-tippers with added safety and stabilization. Faiza Person PT ____01/10/20 Evaluating Therapist Date I agree with and certify that the above recommendation is medically necessary. Referring Physician Date I agree with and certify that the above recommendation is medically necessary. Referring Physician Date
[2020-01-10] MEDS: GABAPENTIN 400 MG CAPSULE 800 MG PO ×3 (10:20→16:54)
[2020-01-10] MEDS: MIDODRINE HCL 10 MG TABLET PO ×3 (10:21→17:00)
[2020-01-10] MEDS: SPIRONOLACTONE 25 MG TABLET PO (10:21)
[2020-01-10] MEDS: guaiFENesin 12 HR 600 MG TABCR PO ×2 (10:21→20:41)
[2020-01-10] MEDS: QUEtiapine FUMARATE 100 MG TABLET 400 MG PO ×2 (10:21→20:44)
[2020-01-10] MEDS: metFORMIN HCL 500 MG TABLET PO ×2 (10:21→16:52)
[2020-01-10] MEDS: NAPROXEN 500 MG TABLET PO ×2 (10:21→16:53)
[2020-01-10 10:22] VITALS: PULSE 90
[2020-01-10] MEDS: AMIODARONE HCL 200 MG TABLET PO (10:22)
[2020-01-10] MEDS: SERTRALINE HCL 50 MG TABLET 100 MG PO (10:22)
[2020-01-10] MEDS: FUROSEMIDE 20 MG TABLET PO (10:22)
[2020-01-10] MEDS: SENNA/DOCUSATE SODIUM TABLET 1 TAB PO ×2 (10:22→16:52)
[2020-01-10] MEDS: EZETIMIBE 10 MG TABLET PO (10:22)
[2020-01-10] MEDS: CHOLECALCIFEROL 1,000 UNITS TABLET 1000 UNITS PO (10:23)
[2020-01-10] MEDS: MICONAZOLE NITRATE 2% CREAM 30 GM TUBE 1 APPLIC TOPICAL ×2 (10:24→20:45)
[2020-01-10 10:31] VITALS: O2SAT 94
--- NOTE | 2020-01-10 11:32 | WPDPN ---
Objective Data Vital Signs Vital Signs: Vital Signs - 24 hr 01/09/20 14:00 01/09/20 22:00 01/10/20 06:00 Temperature 36.7 C 36.6 C 36.2 C L Pulse Rate 97 92 90 Respiratory Rate 20 18 18 Blood Pressure 86/63 L 117/67 118/62 Pulse Oximetry 98 96 95 01/10/20 08:36 01/10/20 10:22 01/10/20 10:31 Temperature Pulse Rate 94 90 Respiratory Rate Blood Pressure 115/63 Pulse Oximetry 96 94 Intake/Output Intake/Output: Intake & Output 01/07/20 01/08/20 01/09/20 01/10/20 23:59 23:59 23:59 23:59 Intake Total 1180 1630 960 480 Output Total 800 Balance 1180 1630 160 480 Meds/Results Medications: Active Medications Generic Name Dose Route Start Last Admin Trade Name Freq PRN Reason Stop Dose Admin Acetaminophen 325 mg 01/03/20 17:43 Tylenol Tablet PO Q4H PRN Mild Pain (1-3) or Fever Albuterol 1 puff 01/03/20 18:00 Proventil Hfa INHALATION Q6H PRN Shortness Of Breath Or Wheezing Amiodarone HCl 200 mg 01/04/20 08:00 01/10/20 10:22 Pacerone PO 200 mg DAILY@0800 PRIYA Administration Bisacodyl 10 mg 01/03/20 16:55 Dulcolax Suppository RECTAL QAM PRN Constipation Buspirone HCl 15 mg 01/03/20 22:00 01/10/20 06:19 Buspar PO 15 mg Q8HR PRIYA Administration Clonazepam 1 mg 01/03/20 21:00 01/09/20 21:43 Klonopin Tablet PO 1 mg HS PRIYA Administration Cyclobenzaprine HCl 5 mg 01/03/20 21:00 01/09/20 21:43 Flexeril PO 5 mg HS PRIYA Administration Dextrose 12.5 gm 01/04/20 13:09 Dextrose 50% Syringe IV PUSH PRN PRN Hypoglycemia Protocol Ezetimibe 10 mg 01/04/20 09:00 01/10/20 10:22 Zetia PO 10 mg QAM PRIYA Administration Enoxaparin Sodium 40 mg 01/03/20 21:00 01/09/20 22:12 Lovenox SUB-Q 40 mg HS PRIYA Administration Furosemide 20 mg 01/06/20 09:00 01/10/20 10:22 Lasix Tablet PO 20 mg DAILY PRIYA Administration Gabapentin 800 mg 01/03/20 17:00 01/10/20 10:20 Neurontin PO 800 mg TID PRIYA Administration Glucagon 1 mg 01/04/20 13:09 Glucagon For Inj IM PRN PRN Hypoglycemia Protocol Glucose 15 gm 01/04/20 13:09 Glutose 15 PO PRN PRN Hypoglycemia Protocol Guaifenesin 600 mg 01/03/20 21:00 01/10/20 10:21 Mucinex 12 Hr Tab PO 600 mg Q12HR PRIYA Administration Dextrose 1,000 mls @ 100 mls/hr 01/04/20 13:09 Dextrose 5% 1,000 Ml IVPB PRN PRN Hypoglycemia Protocol Melatonin 6 mg 01/03/20 21:00 01/09/20 21:44 Melatonin PO 6 mg HS PRIYA Administration Metformin HCl 500 mg 01/03/20 17:00 01/10/20 10:21 Glucophage PO 500 mg BIDWM PRIYA Administration Miconazole Nitrate 1 applic 01/03/20 21:00 01/10/20 10:24 Miconazole Nitrate 2% Cream TOPICAL 1 applic Q12HR PRIYA Administration Midodrine 10 mg 01/03/20 17:00 01/10/20 10:21 Midodrine Hcl PO 10 mg TID PRIYA Administration Naproxen 500 mg 01/03/20 17:00 01/10/20 10:21 Naproxen PO 500 mg BIDWM PRIYA Administration Oxycodone HCl 5 mg 01/03/20 17:44 01/10/20 06:27 Roxicodone Ir Tablet PO 5 mg Q4H PRN Administration Pain Rated 7-10 Quetiapine Fumarate 400 mg 01/03/20 21:00 01/10/20 10:21 Seroquel PO 400 mg Q12HR PRIYA Administration Senna/Docusate Sodium 1 tab 01/10/20 09:00 01/10/20 10:22 Senokot S Tablet PO 1 tab BID PRIYA Administration Sertraline HCl 100 mg 01/04/20 09:00 01/10/20 10:22 Zoloft PO 100 mg DAILY PRIYA Administration Sodium Chloride 10 ml 01/05/20 22:00 01/10/20 06:20 Saline Lock Flush IV PUSH 10 ml Q8HR PRIYA Administration Spironolactone 25 mg 01/04/20 09:00 01/10/20 10:21 Aldactone PO 25 mg QAM [facility] Administration Vitamin D 1,000 units 01/04/20 09:00 01/10/20 10:23 Vitamin D PO 1,000 units QAM [facility] Administration Zinc Oxide 1 applic 01/03/20 17:45 01/04/20 08:51 Desitin Oint TOPICAL 1 applic D
--- NOTE | 2020-01-10 13:40 | PCOTNOTE ---
Attempted to see Patient for her P.M. treatment session. Patient declined to participate at all with any activities. Patient verbalized I am sleeping, I'm tired, I said NO, you are wasting your breath, leave . Therapist will check back at a later time.
[2020-01-10 14:00] VITALS: BP 107/69; PULSE 86; RESP 20; TEMP 36.7; O2SAT 98
--- NOTE | 2020-01-10 14:25 | WPDNEURORHBP ---
Subjective Date/time seen: 01/10/20 14:25 Interval history: this 64-year-old woman is here post acute respiratory failure she is requiring oxygen for about 3 liters. Her urine initially was positive for VRE however the repeat urine is negative she is making excellent progress the occupational therapy and also with the physical therapy with wheel walker she is walking 50 feet and she might need a wheelchair post discharge The patient denies any headache nausea vomiting chest pain shortness of breath however periodically uses fall language which probably is due to her underlying psychiatric disorder for which she is on psychotropic medications and probably is this is her baseline Review of Systems Review of Systems: All systems reviewed & are unremarkable except as noted in HPI and below Functional Status Ambulation Ability Ability to Ambulate 10 Feet: Contact Guard Ability to Ambulate 50 Feet With 2 Turns: Minimum Assistance X 1 Ambulation Assistive Devices: Walker, Wheeled Transfers Ability Ability to Transfer In/Out of Chair: Standby Assistance Exam Const: General: comfortable and no acute distress HENMT: General nose exam: Normal nares present Mouth: Yes moist mucous membranes Eyes: General: appearance normal, both eyes and all related structures Neck: Neck: supple and no JVD Resp: Effort & Inspection: normal respiratory effort Auscultation: clear to auscultation bilaterally Cardio: Rate: regular rate Rhythm: regular rhythm GI: GI Palp: Yes Soft to palpation Auscultation: normal bowel sounds Skin: General skin exam: normal color and no rashes or lesions noted Neuro: Other: patient is awake alert well oriented to time place and person periodically she clearly show signs of underlying psychiatric disorder and spite of being rather large doses of Seroquel however does not realize how much medication she is getting for her to be at the level of functioning psychologically at this point she however is making progress is cooperative and doing well Extrem: General: normal to inspection Psych: Other: underlying periodic disturbance in the thought processing Objective Data Vital Signs Vital Signs: Vital Signs - 24 hr 01/09/20 22:00 01/10/20 06:00 01/10/20 08:36 Temperature 36.6 C 36.2 C L Pulse Rate 92 90 94 Respiratory Rate 18 18 Blood Pressure 117/67 118/62 115/63 Pulse Oximetry 96 95 96 01/10/20 10:22 01/10/20 10:31 Temperature Pulse Rate 90 Respiratory Rate Blood Pressure Pulse Oximetry 94 Intake/Output Intake/Output: Intake & Output 08/29/20 08/30/20 08/31/20 09/01/20 23:59 23:59 23:59 23:59 Intake Total 1180 1630 960 480 Output Total 800 Balance 1180 1630 160 480 Meds/Results Medications: Active Medications Generic Name Dose Route Start Last Admin Trade Name Freq PRN Reason Stop Dose Admin Acetaminophen 325 mg 01/03/20 17:43 Tylenol Tablet PO Q4H PRN Mild Pain (1-3) or Fever Albuterol 1 puff 01/03/20 18:00 Proventil Hfa INHALATION Q6H PRN Shortness Of Breath Or Wheezing Amiodarone HCl 200 mg 01/04/20 08:00 01/10/20 10:22 Pacerone PO 200 mg DAILY@0800 PRIYA Administration Bisacodyl 10 mg 01/03/20 16:55 Dulcolax Suppository RECTAL QAM PRN Constipation Buspirone HCl 15 mg 01/03/20 22:00 01/10/20 06:19 Buspar PO 15 mg Q8HR PRIYA Administration Clonazepam 1 mg 01/03/20 21:00 01/09/20 21:43 Klonopin Tablet PO 1 mg HS PRIYA Administration Cyclobenzaprine HCl 5 mg 01/03/20 21:00 01/09/20 21:43 Flexeril PO 5 mg HS PRIYA Administration Dextrose 12.5 gm 01/04/20 13:09 Dextrose 50% Syringe IV PUSH PRN PRN Hypoglycemia Protocol Ezetimibe 10 mg 01/04/20 09:00 01/10/20 10:22 Zetia PO 10 mg QAM PRIYA Administration Enoxaparin Sodium 40 mg 01/03/20 21:00 01/09/20 22:12 Lovenox SUB-Q 40 mg HS PRIYA Administration Furosemide 20 mg 01/06/20 0
--- NOTE | 2020-01-10 14:30 | PCPTNOTE ---
Patient refused treatment this session at 12:54 and 14:24. Patient stated due tiredness and pain. Therapist attempted to encourage patient to perform therapy. Patient adamantly refused treatments. Patient missed 36 minutes of PT minutes this date.
--- NOTE | 2020-01-10 14:45 | PM.PNCARD ---
Progress Note: A&P Assessment and Plan (1) Pericardial effusion: Code(s): I31.3 - Pericardial effusion (noninflammatory) Status: Acute Assessment and Plan: Patient had terrible problems with recurrent pericardial effusions in the setting of pneumonia ultimately requiring pericardiectomy, and even with that had prolonged drainage from the chest tube. Cytology negative, thought to be inflammatory in nature. Taking naproxen as an anti-inflammatory. No evidence of recurrence. Overall the patient appears stable and euvolemic. Chest x-ray looks relatively good. Agree with current medications. Follow electrolytes periodically. Will follow with you. (2) H/O pericardiectomy: Code(s): Z98.890 - Other specified postprocedural states Status: Acute Assessment and Plan: sternal wound is well healed (3) Pleural effusion: Code(s): J90 - Pleural effusion, not elsewhere classified Status: Acute Assessment and Plan: Recurrent parapneumonic pleural effusions treated with chest tube drainage Resolved . (4) Congestive heart failure with left ventricular diastolic dysfunction: Code(s): I50.30 - Unspecified diastolic (congestive) heart failure Status: Acute Assessment and Plan: History of diastolic heart failure. Euvolemic taking spironolactone and furosemide 40 mg daily. (5) Chronic obstructive pulmonary disease: Code(s): J44.9 - Chronic obstructive pulmonary disease, unspecified Status: Acute Assessment and Plan: COPD and pulmonary fibrosis, currently on O2. (6) Encephalopathy: Code(s): G93.40 - Encephalopathy, unspecified Status: Acute Assessment and Plan: Encephalopathy. (7) PAF (paroxysmal atrial fibrillation): Code(s): I48.0 - Paroxysmal atrial fibrillation Status: Acute Assessment and Plan: History of at least 1 episode of AFib during hospitalizations, treated with amiodarone and in sinus rhythm. Anticoagulation is being avoided because of pericarditis. (8) Low blood pressure: Code(s): I95.9 - Hypotension, unspecified Status: Acute Assessment and Plan: Blood pressure is acceptable on midodrine. Hopefully will improve with time. Additional Plan Subjective Date/time seen: 01/10/20 14:45 Interval history: 64-year-old female who had recurrent pericardial effusions ultimately resulting in the need for pericardiectomy which was done at [facility] before being transferred here for rehab. Chest x-ray on admission did not show any pleural fluid. date of service 01/10/2020: She has some fleeting chest pain which lasts seconds. She has no shortness of breath. Review of Systems Constitutional: Constitutional: Reports fatigue, Reports lethargy and Reports weakness Eyes: Eyes: Reports no additional eye complaints ENT: Denies epistaxis Cardiovascular: Cardiovascular: Reports chest pain, Denies pedal edema, Denies lightheadedness, Denies palpitations and Reports dyspnea on exertion Respiratory: Respiratory: Reports chest congestion, Reports cough, Denies hemoptysis and Reports dyspnea on exertion Gastrointestinal: Gastrointestinal: Denies abdominal pain and Reports hematochezia Genitourinary: Genitourinary: Denies dysuria Musculoskeletal: Musculoskeletal: Denies back pain Integumentary/Breasts: Skin/Breast: Denies rash Neurologic: Reports behavioral changes, Reports confusion and Reports weakness Psychiatric: Psychiatric: Reports behavioral changes and Reports confusion Endocrine: Endocrine: Reports fatigue and Denies palpitations Exam Narrative: Exam Narrative: Frail-appearing female who appears older than her stat
--- NOTE | 2020-01-10 15:04 | PCOTNOTE ---
Attempted to see Patient for her afternoon treatment session for the second time this P.M. Patient is sleeping in bed, when approached, Patient opened her eyes and stated, I said NO . Patient has not received her therapy minutes this date.
[2020-01-10 19:17] LABS: Glucose Point of Care 96 (65-105)
[2020-01-10] MEDS: CYCLOBENZAPRINE HCL 5 MG TABLET PO (20:41)
[2020-01-10] MEDS: MELATONIN 3 MG TABLET 6 MG PO (20:42)
[2020-01-10] MEDS: clonazePAM 0.5 MG TABLET 1 MG PO (20:42)
[2020-01-10] MEDS: ENOXAPARIN 40 MG/0.4 ML SYRINGE SUB-Q (20:42)
[2020-01-10 22:00] VITALS: BP 98/55; PULSE 87; RESP 20; TEMP 36.9; O2SAT 100
[2020-01-11 05:07] LABS: Basophils Percent Auto 0.6 % (0.2-1.2); Eosinophils Absolute Auto 0.3 K/mm3 (0-0.3); Hematocrit 28.3 % (37.0-47.0); Hemoglobin 8.7 g/dL (12.0-15.0); Immature Granulocyte Absolute 0.04 K/mm3 (0.00-0.031); Immature Granulocyte Percent A 0.6 % (0-0.5); Lymphocytes Absolute Auto 1.83 K/mm3 (0.9-3.2); Lymphocytes Percent Auto 27.7 % (18.3-44.2); Mean Corpuscular HGB Conc 30.7 g/dl (32-36); Mean Corpuscular Hemoglobin 27.4 pg (26-34); Mean Platelet Volume 9.7 fl (7.4-10.4); Monocytes Absolute Auto 0.5 K/mm3 (0.1-0.6); Monocytes Percent Auto 7.3 % (2.6-8.5); Neutrophils Absolute Auto 3.9 K/mm3 (1.3-6.7); Neutrophils Percent Auto 58.8 % (45.5-73.1); Platelet Count Result 240 k/mm3 (150-375); Red Blood Count 3.18 M/mm3 (4.2-5.4); Red Cell Distribution Width 17.2 % (11.5-14.5); White Blood Count 6.6 K/mm3 (4.5-10.0)
[2020-01-11 05:50] LABS: Anion Gap 8 mmol/L (8-16); Blood Urea Nitrogen 79 mg/dL (7-17); Calcium 9.6 mg/dL (8.4-10.2); Carbon Dioxide 34 mmol/L (22-30); Chloride 94 mmol/L (98-107); Estimated CRCL calculation 40 ml/min; Estimated Glomerular Filt Rate 56; Glucose 88 mg/dL (65-105); Potassium 3.7 mmol/L (3.4-5.0); Sodium 136 mmol/L (137-145)
[2020-01-11 06:00] VITALS: BP 95/55; PULSE 77; RESP 20; TEMP 36.4; O2SAT 100
[2020-01-11] MEDS: busPIRone HCL 5 MG TABLET 15 MG PO ×3 (06:00→20:19)
[2020-01-11] MEDS: SALINE LOCK FLUSH 10 ML IV PUSH (06:01)
[2020-01-11 06:10] LABS: Hypochromasia 1+ (NORMAL); Microcytosis 1+ (NORMAL); Platelet Estimate Adequate (Adequate)
[2020-01-11 06:29] LABS: Glucose Point of Care 96 (65-105)
[2020-01-11 08:30] VITALS: PULSE 102; O2SAT 98
[2020-01-11 08:55] VITALS: PULSE 102
[2020-01-11] MEDS: AMIODARONE HCL 200 MG TABLET PO (08:55)
[2020-01-11] MEDS: NAPROXEN 500 MG TABLET PO ×2 (08:55→17:00)
[2020-01-11] MEDS: metFORMIN HCL 500 MG TABLET PO ×2 (08:55→17:00)
[2020-01-11] MEDS: guaiFENesin 12 HR 600 MG TABCR PO ×2 (08:55→20:20)
[2020-01-11] MEDS: SENNA/DOCUSATE SODIUM TABLET 1 TAB PO ×2 (08:55→16:59)
[2020-01-11] MEDS: CHOLECALCIFEROL 1,000 UNITS TABLET 1000 UNITS PO (08:56)
[2020-01-11] MEDS: SPIRONOLACTONE 25 MG TABLET PO (08:56)
[2020-01-11] MEDS: EZETIMIBE 10 MG TABLET PO (08:56)
[2020-01-11] MEDS: SERTRALINE HCL 50 MG TABLET 100 MG PO (08:56)
[2020-01-11] MEDS: QUEtiapine FUMARATE 100 MG TABLET 400 MG PO ×2 (08:56→20:20)
[2020-01-11] MEDS: FUROSEMIDE 20 MG TABLET PO (08:56)
[2020-01-11] MEDS: GABAPENTIN 400 MG CAPSULE 800 MG PO ×3 (08:57→16:59)
[2020-01-11] MEDS: MIDODRINE HCL 10 MG TABLET PO ×3 (08:57→17:00)
[2020-01-11] MEDS: MICONAZOLE NITRATE 2% CREAM 30 GM TUBE 1 APPLIC TOPICAL ×2 (09:01→20:21)
[2020-01-11] MEDS: ALBUTEROL SULFATE (*SP) AEROSOL 1 PUFF INHALATION (10:18)
--- NOTE | 2020-01-11 13:02 | PC.NURSE ---
midline to left upper arm removed intact, no complaints or issues verbalized by patient.
--- NOTE | 2020-01-11 13:34 | PM.PNCARD ---
Progress Note: A&P Assessment and Plan (1) Pericardial effusion: Code(s): I31.3 - Pericardial effusion (noninflammatory) Status: Acute Assessment and Plan: Patient had terrible problems with recurrent pericardial effusions in the setting of pneumonia ultimately requiring pericardiectomy, and even with that had prolonged drainage from the chest tube. Cytology negative, thought to be inflammatory in nature. Taking naproxen as an anti-inflammatory. No evidence of recurrence. Overall the patient appears stable and euvolemic. Chest x-ray looks relatively good. Agree with current medications. her BUN is markedly elevated. Will discontinue her furosemide at this point. (2) H/O pericardiectomy: Code(s): Z98.890 - Other specified postprocedural states Status: Acute Assessment and Plan: sternal wound is well healed (3) Pleural effusion: Code(s): J90 - Pleural effusion, not elsewhere classified Status: Acute Assessment and Plan: Recurrent parapneumonic pleural effusions treated with chest tube drainage Resolved . (4) Congestive heart failure with left ventricular diastolic dysfunction: Code(s): I50.30 - Unspecified diastolic (congestive) heart failure Status: Acute Assessment and Plan: History of diastolic heart failure. Euvolemic taking spironolactone Will discontinue her furosemide (5) Chronic obstructive pulmonary disease: Code(s): J44.9 - Chronic obstructive pulmonary disease, unspecified Status: Acute Assessment and Plan: COPD and pulmonary fibrosis, currently on O2. (6) Encephalopathy: Code(s): G93.40 - Encephalopathy, unspecified Status: Acute Assessment and Plan: Encephalopathy. (7) PAF (paroxysmal atrial fibrillation): Code(s): I48.0 - Paroxysmal atrial fibrillation Status: Acute Assessment and Plan: History of at least 1 episode of AFib during hospitalizations, treated with amiodarone and in sinus rhythm. Anticoagulation is being avoided because of pericarditis. (8) Low blood pressure: Code(s): I95.9 - Hypotension, unspecified Status: Acute Assessment and Plan: Blood pressure is acceptable on midodrine. Hopefully will improve with time. Subjective Date/time seen: 01/11/20 13:34 Interval history: 64-year-old female who had recurrent pericardial effusions ultimately resulting in the need for pericardiectomy which was done at [facility] before being transferred here for rehab. Chest x-ray on admission did not show any pleural fluid. date of service 01/11/2020: mild dizziness upon standing. No chest pain She has no shortness of breath. Review of Systems Constitutional: Constitutional: Reports fatigue, Reports lethargy and Reports weakness Eyes: Eyes: Reports no additional eye complaints ENT: Denies epistaxis Cardiovascular: Cardiovascular: Reports chest pain, Denies pedal edema, Denies lightheadedness, Denies palpitations and Reports dyspnea on exertion Respiratory: Respiratory: Reports chest congestion, Reports cough, Denies hemoptysis and Reports dyspnea on exertion Gastrointestinal: Gastrointestinal: Denies abdominal pain and Reports hematochezia Genitourinary: Genitourinary: Denies dysuria Musculoskeletal: Musculoskeletal: Denies back pain Integumentary/Breasts: Skin/Breast: Denies rash Neurologic: Reports behavioral changes, Reports confusion and Reports weakness Psychiatric: Psychiatric: Reports behavioral changes and Reports confusion Endocrine: Endocrine: Reports fatigue and Denies palpitations Exam Narrative: Exam Narrative: Frail-appearing female who appears older than her state
[2020-01-11 14:00] VITALS: BP 122/60; PULSE 82; RESP 20; TEMP 36.7; O2SAT 98
--- NOTE | 2020-01-11 14:32 | WPDNEURORHBP ---
Subjective Date/time seen: 01/11/20 14:32 Interval history: this 64-year-old woman with underlying cardiopulmonary history is which have been elaborated in the previous notes is here status post acute hypoxemic respiratory failure she is doing fairly well the rehab however her BUN is rising in spite of the fact that the furosemide was held and I am not entirely clear which medication we need to stop at this point as I am little leery to give her any IV fluids considering her cardiopulmonary state in any event I have requested a nephrology consult to help me out the cardiology have also been following this woman Review of Systems Review of Systems: All systems reviewed & are unremarkable except as noted in HPI and below Functional Status Ambulation Ability Ability to Ambulate 10 Feet: Contact Guard Ability to Ambulate 50 Feet With 2 Turns: Contact Guard Ambulation Assistive Devices: Walker, Wheeled Transfers Ability Ability to Transfer In/Out of Chair: Standby Assistance Exam Const: General: comfortable and no acute distress HENMT: General nose exam: Normal nares present Mouth: Yes moist mucous membranes Eyes: General: appearance normal, both eyes and all related structures Neck: Neck: supple and no JVD Resp: Other: mild rhonchi from the long-standing COPD Cardio: Rate: regular rate Rhythm: regular rhythm GI: GI Palp: Yes Soft to palpation Auscultation: normal bowel sounds Skin: General skin exam: normal color and no rashes or lesions noted Neuro: Other: patient is awake alert well oriented follows all commands has generalized weakness needing assistance is all the activities of daily living her affect fluctuates which reflects her underlying psychiatric disorder for which she is on multiple medications Extrem: General: normal to inspection Psych: Other: unusual affect and neither anxious not sad but hyperactive Objective Data Vital Signs Vital Signs: Vital Signs - 24 hr 01/10/20 22:00 01/11/20 06:00 01/11/20 08:55 Temperature 36.9 C 36.4 C L Pulse Rate 87 77 102 H Respiratory Rate 20 20 Blood Pressure 98/55 L 95/55 L Pulse Oximetry 100 100 Intake/Output Intake/Output: Intake & Output 01/08/20 01/09/20 01/10/20 01/11/20 23:59 23:59 23:59 23:59 Intake Total 1630 960 960 480 Output Total 800 400 Balance 1630 160 560 480 Meds/Results Medications: Active Medications Generic Name Dose Route Start Last Admin Trade Name Freq PRN Reason Stop Dose Admin Acetaminophen 325 mg 01/03/20 17:43 Tylenol Tablet PO Q4H PRN Mild Pain (1-3) or Fever Albuterol 1 puff 01/03/20 18:00 01/11/20 10:18 Proventil Hfa INHALATION 1 puff Q6H PRN Administration Shortness Of Breath Or Wheezing Amiodarone HCl 200 mg 01/04/20 08:00 01/11/20 08:55 Pacerone PO 200 mg DAILY@0800 PRIYA Administration Bisacodyl 10 mg 01/03/20 16:55 Dulcolax Suppository RECTAL QAM PRN Constipation Buspirone HCl 15 mg 01/03/20 22:00 01/11/20 12:50 Buspar PO 15 mg Q8HR PRIYA Administration Clonazepam 1 mg 01/03/20 21:00 01/10/20 20:42 Klonopin Tablet PO 1 mg HS PRIYA Administration Cyclobenzaprine HCl 5 mg 01/03/20 21:00 01/10/20 20:41 Flexeril PO 5 mg HS PRIYA Administration Dextrose 12.5 gm 01/04/20 13:09 Dextrose 50% Syringe IV PUSH PRN PRN Hypoglycemia Protocol Ezetimibe 10 mg 01/04/20 09:00 01/11/20 08:56 Zetia PO 10 mg QAM PRIYA Administration Enoxaparin Sodium 40 mg 01/03/20 21:00 01/10/20 20:42 Lovenox SUB-Q 40 mg HS PRIYA Administration Gabapentin 800 mg 01/03/20 17:00 01/11/20 12:49 Neurontin PO 800 mg TID PRIYA Administration Glucagon 1 mg 01/04/20 13:09 Glucagon For Inj IM PRN PRN Hypoglycemia Protocol Glucose 15 gm 01/04/20 13:09 Glutose 15 PO PRN PRN Hypoglycemia Protocol Guaifenesin 600 mg 01/03/20 21:00 01/11/20 08:55 Mu
--- NOTE | 2020-01-11 17:35 | PM.CNNEP ---
Assessment and Plan Assessment and plan (1) Elevated BUN: Code(s): R79.9 - Abnormal finding of blood chemistry, unspecified Status: Acute Assessment and Plan: the patient has a normal creatinine but an elevated BUN. This could be from decreased secretion of BUN or elevated production of BUN. The patient was on diuretics which would lean in the favor of the latter issue. The patient has not been on steroids or tetracyclines. She does not have any evidence of GI bleeding. So I do not think production of BUN is an issue. Dr. Henao already discontinued the diuretics. We can see how her BUN does with this. Because of her history of congestive heart failure she is probably going to need some diuretics down the line. At home she is likely to have a less strict diet and so certainly will need diuretics at that point. (2) Pericardial effusion: Code(s): I31.3 - Pericardial effusion (noninflammatory) Status: Acute Assessment and Plan: Dr. dawkins and doctor Juliano are following this issue. (3) Congestive heart failure with left ventricular diastolic dysfunction: Code(s): I50.30 - Unspecified diastolic (congestive) heart failure Status: Acute Assessment and Plan: Getting supportive care. (4) Pulmonary fibrosis: Code(s): J84.10 - Pulmonary fibrosis, unspecified Status: Acute Assessment and Plan: She says she is going to stop smoking (5) Diabetes mellitus: Code(s): E11.9 - Type 2 diabetes mellitus without complications Status: Acute Assessment and Plan: she is on Accu-Cheks and sliding-scale insulin (6) PAF (paroxysmal atrial fibrillation): Code(s): I48.0 - Paroxysmal atrial fibrillation Status: Acute Assessment and Plan: sinus rhythm at the moment (7) Possible urinary tract infection: Code(s): R39.89 - Other symptoms and signs involving the genitourinary system Status: Acute Assessment and Plan: Dr. vinson is following for this. History of Present Illness Reason for Consult Consult date: 01/11/20 Chief Complaint Chief complaint: ACUUTE HYPOXEMIA RESPIRATORY FAILURE History of Present Illness Narrative: Queenie is a very pleasant 64-year-old lady who has multiple medical problems including depression, current cigarette smoking, coronary disease status post bypass, UTIs, COPD, sleep apnea, diabetes, hypertension, anemia, atrial fibrillation, congestive heart failure, sacral stenosis, chronic pain syndrome. The patient has been in rehab because she had a bypass recently. She is in this hospital to become stronger. She has been getting her physical therapy and occupational therapy. She had a chest x-ray on admission which showed some bilateral perihilar and bibasilar airspace disease and so she was given diuretics. Lately her BUN has been elevated. So renal consultation was requested Dr. Henao saw the patient today and stopped her diuretics. The patient says that she has had steroids in the past but has not had any in the last year. She does not have any black or bloody stools. She has not been on tetracycline lately. She says she smoked up until the time she had her bypass but now says she is not care to smoke any more. She does not drink alcohol. She has diabetes. Sugars have been okay. The patient has hypertension. Her blood pressure has been okay. Review of Systems Constitutional: Constitutional: Reports no additional constitutional complaints Eyes: Eyes: Reports no additional eye complaints ENT: Reports system reviewed and no additional complaints, except as documented Cardiovascular: Cardiovascular: Reports no additional cardiovascular complaints Respiratory: Respiratory: Reports no additional respiratory complaints Gastrointestinal: Gastrointestinal: Reports no additional gastrointestinal complaints Genitourinary: Ge
[2020-01-11 17:50] LABS: Glucose Point of Care 112 (65-105)
[2020-01-11] MEDS: MELATONIN 3 MG TABLET 6 MG PO (20:20)
[2020-01-11] MEDS: CYCLOBENZAPRINE HCL 5 MG TABLET PO (20:20)
[2020-01-11] MEDS: clonazePAM 0.5 MG TABLET 1 MG PO (20:21)
[2020-01-11] MEDS: ENOXAPARIN 40 MG/0.4 ML SYRINGE SUB-Q (20:21)
[2020-01-11 20:33] VITALS: O2SAT 92
[2020-01-11 22:00] VITALS: BP 100/47; PULSE 83; RESP 16; TEMP 36.7; O2SAT 94
[2020-01-12] MEDS: busPIRone HCL 5 MG TABLET 15 MG PO ×3 (05:22→20:15)
[2020-01-12 05:40] LABS: Albumin Level 3.9 g/dL (3.5-5.1); Anion Gap 9 mmol/L (8-16); Blood Urea Nitrogen 75 mg/dL (7-17); Calcium 9.2 mg/dL (8.4-10.2); Carbon Dioxide 32 mmol/L (22-30); Chloride 95 mmol/L (98-107); Estimated CRCL calculation 50 ml/min; Estimated Glomerular Filt Rate > 60; Glucose 81 mg/dL (65-105); Phosphorus 4.9 mg/dL (2.5-4.5); Potassium 3.6 mmol/L (3.4-5.0); Sodium 136 mmol/L (137-145)
[2020-01-12 06:00] VITALS: BP 117/55; PULSE 69; RESP 20; TEMP 36.4; O2SAT 93
[2020-01-12 06:46] LABS: Glucose Point of Care 92 (65-105)
[2020-01-12 08:10] VITALS: PULSE 100; O2SAT 95
[2020-01-12] MEDS: metFORMIN HCL 500 MG TABLET PO ×2 (09:36→17:43)
[2020-01-12 09:37] VITALS: PULSE 100
[2020-01-12] MEDS: guaiFENesin 12 HR 600 MG TABCR PO ×2 (09:37→20:16)
[2020-01-12] MEDS: NAPROXEN 500 MG TABLET PO ×2 (09:37→17:43)
[2020-01-12] MEDS: CHOLECALCIFEROL 1,000 UNITS TABLET 1000 UNITS PO (09:37)
[2020-01-12] MEDS: AMIODARONE HCL 200 MG TABLET PO (09:37)
[2020-01-12] MEDS: MICONAZOLE NITRATE 2% CREAM 30 GM TUBE 1 APPLIC TOPICAL ×2 (09:38→20:17)
[2020-01-12] MEDS: GABAPENTIN 400 MG CAPSULE 800 MG PO ×3 (09:38→17:43)
[2020-01-12] MEDS: SENNA/DOCUSATE SODIUM TABLET 1 TAB PO ×2 (09:38→17:43)
[2020-01-12] MEDS: EZETIMIBE 10 MG TABLET PO (09:38)
[2020-01-12] MEDS: QUEtiapine FUMARATE 100 MG TABLET 400 MG PO ×2 (09:38→20:16)
[2020-01-12] MEDS: MIDODRINE HCL 10 MG TABLET PO ×3 (09:38→17:43)
[2020-01-12] MEDS: SERTRALINE HCL 50 MG TABLET 100 MG PO (09:39)
[2020-01-12] MEDS: SPIRONOLACTONE 25 MG TABLET PO (09:39)
--- NOTE | 2020-01-12 10:21 | PM.PNCARD ---
Progress Note: A&P Assessment and Plan (1) Pericardial effusion: Code(s): I31.3 - Pericardial effusion (noninflammatory) Status: Acute Assessment and Plan: Patient had terrible problems with recurrent pericardial effusions in the setting of pneumonia ultimately requiring pericardiectomy, and even with that had prolonged drainage from the chest tube. Cytology negative, thought to be inflammatory in nature. Taking naproxen as an anti-inflammatory. No evidence of recurrence. Overall the patient appears stable and euvolemic. (2) H/O pericardiectomy: Code(s): Z98.890 - Other specified postprocedural states Status: Acute Assessment and Plan: sternal wound is well healed (3) Pleural effusion: Code(s): J90 - Pleural effusion, not elsewhere classified Status: Acute Assessment and Plan: Recurrent parapneumonic pleural effusions treated with chest tube drainage Resolved . (4) Congestive heart failure with left ventricular diastolic dysfunction: Code(s): I50.30 - Unspecified diastolic (congestive) heart failure Status: Acute Assessment and Plan: History of diastolic heart failure. Euvolemic taking spironolactone will check a PA and lateral chest x-ray today as she does have some crackles at the bases (5) Chronic obstructive pulmonary disease: Code(s): J44.9 - Chronic obstructive pulmonary disease, unspecified Status: Acute Assessment and Plan: COPD and pulmonary fibrosis, currently on O2. (6) Encephalopathy: Code(s): G93.40 - Encephalopathy, unspecified Status: Acute Assessment and Plan: Encephalopathy. (7) PAF (paroxysmal atrial fibrillation): Code(s): I48.0 - Paroxysmal atrial fibrillation Status: Acute Assessment and Plan: History of at least 1 episode of AFib during hospitalizations, treated with amiodarone and in sinus rhythm. Anticoagulation is being avoided because of pericarditis.KCL 40 mEq p.o. x1 (8) Low blood pressure: Code(s): I95.9 - Hypotension, unspecified Status: Acute Assessment and Plan: Blood pressure is acceptable on midodrine. Hopefully will improve with time. Subjective Date/time seen: 01/12/20 10:21 Interval history: 64-year-old female who had recurrent pericardial effusions ultimately resulting in the need for pericardiectomy which was done at [facility] before being transferred here for rehab. Chest x-ray on admission did not show any pleural fluid. date of service 01/12/2020: She has no shortness of breath. incisional chest pain is complained of Review of Systems Constitutional: Constitutional: Reports fatigue, Reports lethargy and Reports weakness Eyes: Eyes: Reports no additional eye complaints ENT: Denies epistaxis Cardiovascular: Cardiovascular: Reports chest pain, Denies pedal edema, Denies lightheadedness, Denies palpitations and Reports dyspnea on exertion Respiratory: Respiratory: Reports chest congestion, Reports cough, Denies hemoptysis and Reports dyspnea on exertion Gastrointestinal: Gastrointestinal: Denies abdominal pain and Reports hematochezia Genitourinary: Genitourinary: Denies dysuria Musculoskeletal: Musculoskeletal: Denies back pain Integumentary/Breasts: Skin/Breast: Denies rash Neurologic: Reports behavioral changes, Reports confusion and Reports weakness Psychiatric: Psychiatric: Reports behavioral changes and Reports confusion Endocrine: Endocrine: Reports fatigue and Denies palpitations Exam Narrative: Exam Narrative: Frail-appearing female who appears older than her stated ag Const: General: comfortable, no acute distress, confusion and unco
--- NOTE | 2020-01-12 13:10 | PCOTNOTE ---
Attempted to see Patient for her afternoon treatment session. Patient adamantly refused to participate at this time. Patient verbalized she had just got back into bed, I'm gopinjg to sleep and maybe later I will but not now . Will attempt again at a later time.
[2020-01-12 14:00] VITALS: BP 126/62; PULSE 102; RESP 18; TEMP 36.2; O2SAT 97
--- NOTE | 2020-01-12 14:00 | PCOTNOTE ---
Therapist performed 2nd attempt to achieve Patient to participate in OT this afternoon. Patient was sleeping upon entry of the room. Patient was woke up, immediately irritated and verbally stated NO . Patient was spoke to about the importance and the guidelines og therapy services. Patient verbalized, I'm not doing any therapy, I go home tomorrow and I already have home health set up for Thursday, I'm done with this place, just leave me alone .
[2020-01-12 17:08] LABS: Glucose Point of Care 127 (65-105)
[2020-01-12 20:04] VITALS: BP 130/73; PULSE 94; RESP 20; TEMP 36.5; O2SAT 99
[2020-01-12] MEDS: clonazePAM 0.5 MG TABLET 1 MG PO (20:15)
[2020-01-12] MEDS: MELATONIN 3 MG TABLET 6 MG PO (20:16)
[2020-01-12] MEDS: CYCLOBENZAPRINE HCL 5 MG TABLET PO (20:16)
[2020-01-12] MEDS: ENOXAPARIN 40 MG/0.4 ML SYRINGE SUB-Q (20:17)
[2020-01-13 04:36] LABS: Total Volume 24 Hour Urine 1300 ml; Urea Nitrogen 24 Hour Urine 10.2 G/DAY (12-20)
[2020-01-13 05:05] VITALS: BP 101/48; PULSE 79; RESP 18; TEMP 36.7; O2SAT 92
[2020-01-13] MEDS: busPIRone HCL 5 MG TABLET 15 MG PO ×2 (06:24→14:41)
[2020-01-13 06:37] LABS: Glucose Point of Care 81 (65-105)
[2020-01-13 08:52] VITALS: PULSE 79
[2020-01-13] MEDS: metFORMIN HCL 500 MG TABLET PO (08:52)
[2020-01-13] MEDS: AMIODARONE HCL 200 MG TABLET PO (08:52)
[2020-01-13] MEDS: NAPROXEN 500 MG TABLET PO (08:52)
[2020-01-13] MEDS: EZETIMIBE 10 MG TABLET PO (08:53)
[2020-01-13] MEDS: MICONAZOLE NITRATE 2% CREAM 30 GM TUBE 1 APPLIC TOPICAL (08:53)
[2020-01-13] MEDS: SENNA/DOCUSATE SODIUM TABLET 1 TAB PO (08:53)
[2020-01-13] MEDS: CHOLECALCIFEROL 1,000 UNITS TABLET 1000 UNITS PO (08:53)
[2020-01-13] MEDS: guaiFENesin 12 HR 600 MG TABCR PO (08:53)
[2020-01-13] MEDS: GABAPENTIN 400 MG CAPSULE 800 MG PO ×2 (08:53→12:39)
[2020-01-13] MEDS: QUEtiapine FUMARATE 100 MG TABLET 400 MG PO (08:54)
[2020-01-13] MEDS: SERTRALINE HCL 50 MG TABLET 100 MG PO (08:54)
[2020-01-13] MEDS: SPIRONOLACTONE 25 MG TABLET PO (08:54)
[2020-01-13] MEDS: MIDODRINE HCL 10 MG TABLET PO ×2 (08:54→12:40)
--- NOTE | 2020-01-13 09:00 | PM.PNCARD ---
Progress Note: A&P Assessment and Plan (1) Pericardial effusion: Code(s): I31.3 - Pericardial effusion (noninflammatory) Status: Acute Assessment and Plan: Patient had terrible problems with recurrent pericardial effusions in the setting of pneumonia ultimately requiring pericardiectomy, and even with that had prolonged drainage from the chest tube. Cytology negative, thought to be inflammatory in nature. Taking naproxen as an anti-inflammatory. No evidence of recurrence. Overall the patient appears stable and euvolemic. Follow-up with Dr. Hope (2) H/O pericardiectomy: Code(s): Z98.890 - Other specified postprocedural states Status: Acute Assessment and Plan: sternal wound is well healed (3) Pleural effusion: Code(s): J90 - Pleural effusion, not elsewhere classified Status: Acute Assessment and Plan: Recurrent parapneumonic pleural effusions treated with chest tube drainage Resolved . (4) Congestive heart failure with left ventricular diastolic dysfunction: Code(s): I50.30 - Unspecified diastolic (congestive) heart failure Status: Acute Assessment and Plan: History of diastolic heart failure. Euvolemic taking spironolactone chest x-ray shows atelectasis. (5) Chronic obstructive pulmonary disease: Code(s): J44.9 - Chronic obstructive pulmonary disease, unspecified Status: Acute Assessment and Plan: COPD and pulmonary fibrosis, currently on O2. (6) Encephalopathy: Code(s): G93.40 - Encephalopathy, unspecified Status: Acute Assessment and Plan: Encephalopathy. (7) PAF (paroxysmal atrial fibrillation): Code(s): I48.0 - Paroxysmal atrial fibrillation Status: Acute Assessment and Plan: History of at least 1 episode of AFib during hospitalizations, treated with amiodarone and in sinus rhythm. Anticoagulation is being avoided because of pericarditis (8) Low blood pressure: Code(s): I95.9 - Hypotension, unspecified Status: Acute Assessment and Plan: Blood pressure is acceptable on midodrine. Hopefully will improve with time. Subjective Date/time seen: 01/13/20 09:00 Interval history: 64-year-old female who had recurrent pericardial effusions ultimately resulting in the need for pericardiectomy which was done at [facility] before being transferred here for rehab. Chest x-ray on admission did not show any pleural fluid. date of service 01/13/2020: She has no shortness of breath. no chest pain. Anticipation for discharge today Review of Systems Constitutional: Constitutional: Reports fatigue, Reports lethargy and Reports weakness Eyes: Eyes: Reports no additional eye complaints ENT: Denies epistaxis Cardiovascular: Cardiovascular: Reports chest pain, Denies pedal edema, Denies lightheadedness, Denies palpitations and Reports dyspnea on exertion Respiratory: Respiratory: Reports chest congestion, Reports cough, Denies hemoptysis and Reports dyspnea on exertion Gastrointestinal: Gastrointestinal: Denies abdominal pain and Reports hematochezia Genitourinary: Genitourinary: Denies dysuria Musculoskeletal: Musculoskeletal: Denies back pain Integumentary/Breasts: Skin/Breast: Denies rash Neurologic: Reports behavioral changes, Reports confusion and Reports weakness Psychiatric: Psychiatric: Reports behavioral changes and Reports confusion Endocrine: Endocrine: Reports fatigue and Denies palpitations Exam Narrative: Exam Narrative: Frail-appearing female who appears older than her stated ag Const: General: comfortable, no acute distress, confusion and uncomfortable Orientation/consciousness: conf
--- NOTE | 2020-01-13 12:31 | WPDNEURORHBP ---
Subjective Date/time seen: 01/13/20 12:31 Interval history: This 64-year-old woman with significant underlying psychiatric history has been here recuperating after having had pericardiectomy followed by complicated medical course as outlined in my history she has been followed here by our predatory animal trapper the patient has been cardiac neff and pulmonary neff has been stable she denies any headache nausea vomiting chest pain or any more shortness of breath seen GERD have we underlying pulmonary issues she has had for some time her psychiatric conditions remains stable she not psychotic and no suicidal ideations noted she is ready to be discharged with home to follow up with Lovenox at least for the next 14 days while the patient is not walking even 100 feet at this time Review of Systems Review of Systems: All systems reviewed & are unremarkable except as noted in HPI and below Functional Status Ambulation Ability Ability to Ambulate 10 Feet: Standby Assistance Ability to Ambulate 50 Feet With 2 Turns: Contact Guard Ambulation Assistive Devices: Walker, Wheeled Transfers Ability Ability to Transfer In/Out of Chair: Standby Assistance Exam Const: General: comfortable and no acute distress HENMT: General nose exam: Normal nares present Mouth: Yes moist mucous membranes Eyes: General: appearance normal, both eyes and all related structures Neck: Neck: supple and no JVD Resp: Effort & Inspection: normal respiratory effort Auscultation: clear to auscultation bilaterally Cardio: Rate: regular rate Rhythm: regular rhythm GI: GI Palp: Yes Soft to palpation Auscultation: normal bowel sounds Skin: General skin exam: normal color and no rashes or lesions noted Neuro: Other: patient is awake alert well oriented follows all commands her weakness has improved and she is walking now 50 feet maximum and would require at least a couple more weeks of the DVT prophylaxis at this time Extrem: General: normal to inspection Psych: Other: psychology and the psychiatric status remains stable with hyper Fili and at times overactive talking which most likely is her baseline Objective Data Vital Signs Vital Signs: Vital Signs - 24 hr 01/12/20 14:00 01/12/20 20:04 01/13/20 05:05 Temperature 36.2 C L 36.5 C 36.7 C Pulse Rate 102 H 94 79 Respiratory Rate 18 20 18 Blood Pressure 126/62 130/73 101/48 L Pulse Oximetry 97 99 92 01/13/20 08:52 Temperature Pulse Rate 79 Respiratory Rate Blood Pressure Pulse Oximetry Intake/Output Intake/Output: Intake & Output 01/10/20 01/11/20 01/12/20 01/13/20 23:59 23:59 23:59 23:59 Intake Total 960 720 960 480 Output Total 400 400 Balance 560 320 960 480 Meds/Results Medications: Active Medications Generic Name Dose Route Start Last Admin Trade Name Freq PRN Reason Stop Dose Admin Acetaminophen 325 mg 01/03/20 17:43 Tylenol Tablet PO Q4H PRN Mild Pain (1-3) or Fever Albuterol 1 puff 01/03/20 18:00 01/11/20 10:18 Proventil Hfa INHALATION 1 puff Q6H PRN Administration Shortness Of Breath Or Wheezing Amiodarone HCl 200 mg 01/04/20 08:00 01/13/20 08:52 Pacerone PO 200 mg DAILY@0800 PRIYA Administration Bisacodyl 10 mg 01/03/20 16:55 Dulcolax Suppository RECTAL QAM PRN Constipation Buspirone HCl 15 mg 01/03/20 22:00 01/13/20 06:24 Buspar PO 15 mg Q8HR PRIYA Administration Clonazepam 1 mg 01/03/20 21:00 01/12/20 20:15 Klonopin Tablet PO 1 mg HS PRIYA Administration Cyclobenzaprine HCl 5 mg 01/03/20 21:00 01/12/20 20:16 Flexeril PO 5 mg HS PRIYA Administration Dextrose 12.5 gm 01/04/20 13:09 Dextrose 50% Syringe IV PUSH PRN PRN Hypoglycemia Protocol Ezetimibe 10 mg 01/04/20 09:00 01/13/20 08:53 Zetia PO 10 mg QAM PRIYA Administration Enoxaparin Sodium 40 mg 01/03/20 21:00 01/12/20 20:17 Lovenox SUB-Q 40 mg HS PRIYA Administration Gabapentin 800 m
--- NOTE | 2020-01-13 13:02 | PCNFU ---
Nutrition Follow-Up Complete: Increased protein/calorie needs related to increased demands for healing as evidenced by need for oral supplementation, reported weight loss, buttock abrasion. Goal: Patient to consume 75% of meals/supplements or greater. Patient is meeting goal at 100% meal consumption. Pt reports good appetite and no diet related concerns. Pt receiving Enlive once/day (350 kcal and 20 grams protein) Will continue with current goal. Pt current nutrition is DBCC/Soft and Bite Sized Level 6. Nutrition recommendation: Agree with current recommendations Last recorded weight is 57.8 kg. Recommend obtaining new weight Bowel Motility: last bowel movement reported on 01/12/20 Labs Reviewed: Hgb (8.7) Hct (28.3) Na (136) BUN (75) Meds Noted: Albuterol, Lasix, Glucophage, Midodrine, Roxicodone, Aldactone, Vitamin D, Dulcolax, Senokot, Klonopin Additional Notes: sacrum abrasion, pressure ulcer on buttocks Follow up every 7 days.
[2020-01-13 14:00] VITALS: BP 112/52; PULSE 82; RESP 18; TEMP 36.9; O2SAT 96
[2020-01-13 14:21] VITALS: O2SAT 98
[2020-01-13] MEDS: ALBUTEROL SULFATE (*SP) AEROSOL 1 PUFF INHALATION (14:21)
--- NOTE | 2020-01-13 14:39 | PCNSR ---
On 01/13/20, the student, Robert Miller, provided care and completed [facility] documentation on this patient. I have reviewed the student's documentation and agree with the findings.
--- NOTE | 2020-01-18 14:52 | PM.DS ---
DS: Admitting Diagnosis Admitting Diagnosis Admitting Diagnosis: ACUUTE HYPOXEMIA RESPIRATORY FAILURE DS: Discharge Diagnosis Discharge Diagnosis (1) Elevated BUN: Code(s): R79.9 - Abnormal finding of blood chemistry, unspecified Status: Acute (2) Renal insufficiency: Code(s): N28.9 - Disorder of kidney and ureter, unspecified Status: Acute (3) Psychiatric disorder: Code(s): F99 - Mental disorder, not otherwise specified Status: Acute (4) Bacteriuria: Code(s): R82.71 - Bacteriuria Status: Acute (5) Low blood pressure: Code(s): I95.9 - Hypotension, unspecified Status: Acute (6) PAF (paroxysmal atrial fibrillation): Code(s): I48.0 - Paroxysmal atrial fibrillation Status: Acute (7) Pericardial effusion: Code(s): I31.3 - Pericardial effusion (noninflammatory) Status: Acute (8) Pleural effusion: Code(s): J90 - Pleural effusion, not elsewhere classified Status: Acute (9) H/O pericardiectomy: Code(s): Z98.890 - Other specified postprocedural states Status: Acute (10) Chronic pain syndrome: Code(s): G89.4 - Chronic pain syndrome Status: Acute (11) Congestive heart failure with left ventricular diastolic dysfunction: Code(s): I50.30 - Unspecified diastolic (congestive) heart failure Status: Acute (12) Pulmonary fibrosis: Code(s): J84.10 - Pulmonary fibrosis, unspecified Status: Acute (13) Chronic depression: Code(s): F32.9 - Major depressive disorder, single episode, unspecified Status: Acute (14) Diabetes mellitus: Code(s): E11.9 - Type 2 diabetes mellitus without complications Status: Acute (15) S/P pericardial window creation: Code(s): Z98.890 - Other specified postprocedural states Status: Acute (16) Acute hypoxemic respiratory failure: Code(s): J96.01 - Acute respiratory failure with hypoxia Status: Acute (17) Chronic respiratory failure with hypoxia: Code(s): J96.11 - Chronic respiratory failure with hypoxia Status: Acute (18) Chronic obstructive pulmonary disease: Code(s): J44.9 - Chronic obstructive pulmonary disease, unspecified Status: Acute (19) Lung nodule: Code(s): R91.1 - Solitary pulmonary nodule Status: Acute (20) Tobacco abuse: Code(s): Z72.0 - Tobacco use Status: Acute (21) Hypoxia: Code(s): R09.02 - Hypoxemia Status: Acute DS: Summary Hospital Course Reason for hospitalization: this 64-year-old woman was admitted primarily on the acute rehab status post pericardial window creation at the tertiary care facility was also followed here by the primary mill roller the notes are self evident the patient received the medical management of his underlying her underlying conditions PT OT and gait training and was able to achieved the following independent measures Hospital Course: eating independent, oral hygiene independent / setup toileting independent, bathing supervision, upper body dressing supervision, lower body dressing supervision, footwear supervision, rolling in bed independent sitting to lying independent, lying to sitting independent, [id number] independent, chair transfers independent toilet transfers independent car transfers supervision walking 10 feet independent walking 50 feet with 2 turns independent, walking 10 feet uneven surfaces independent Fluker sit up independent 4 steps independent 12 steps independent picking object independent wheelchair 50 feet supervision wheelchair 150 feet supervision patient was sent home with home health to follow no falls were recorded patient was seen by our primary mill roller here and they recommended the follow-up with her or regional primary mill roller Dr. Suazo Time Spent with Patient Time attestation: Total time spent providing and/or coordinating discharge services: Exam Const: General: comfortab
== END 2020-01-13 16:40 | disposition home health service (06) | DRG 949 ==
PROVIDERS: Internal Medicine Cardiovascular Disease; Internal Medicine Infectious Disease; Internal Medicine Nephrology; Admitting Provider Psychiatry & Neurology Neurology; Visit Provider Psychiatry & Neurology Neurology
DX: Z48.812 Encounter for surgical aftercare following surgery on the circulatory system (principal); I50.30 Unspecified diastolic (congestive) heart failure; G93.40 Encephalopathy, unspecified; J96.11 Chronic respiratory failure with hypoxia; D64.9 Anemia, unspecified; E55.9 Vitamin D deficiency, unspecified; E11.9 Type 2 diabetes mellitus without complications; E78.5 Hyperlipidemia, unspecified; F32.9 Major depressive disorder, single episode, unspecified; F17.210 Nicotine dependence, cigarettes, uncomplicated; G89.4 Chronic pain syndrome; G47.33 Obstructive sleep apnea (adult) (pediatric); I27.20 Pulmonary hypertension, unspecified; I48.91 Unspecified atrial fibrillation; I11.0 Hypertensive heart disease with heart failure; J43.9 Emphysema, unspecified; J84.10 Pulmonary fibrosis, unspecified; M48.02 Spinal stenosis, cervical region; N28.9 Disorder of kidney and ureter, unspecified; R79.9 Abnormal finding of blood chemistry, unspecified
CPT/HCPCS: 36415; 71045; 71046; 80048; 80069; 81001; 81003; 81050; 84540; 85025; 87040; 87077; 87086; 87088; 87186; 92523; 94640; 97110; 97116; 97161; 97166; 97530; 97535; 97542; A9270; J1650

== ENCOUNTER 2020-01-15 13:37 | Emergency (ER) | payer MEDICARE, MEDICAID, SELFPAY ==
--- NOTE | ~2020-01-15 | XR_ITS ---
XR chest 1V portable DATE: 01/15/2020 14:36 INDICATION: Shortness of breath TECHNIQUE: Portable AP chest on 01/15/2020 at 1439 hours COMPARISON: 01/12/2020 AP and lateral chest FINDINGS: Status post sternotomy. Heart size is not optimally evaluated on AP projection because of m agnification. There is patchy infiltrate, atelectasis or scarring in the left mid to lower lung. Mild discoid atele ctasis or scarring in the right lower lung zone. There is mild pulmonary vascular and interstitial prominence as well as mild prominence of minor fiss ure, which may indicate mild congestive changes. There is minimal blunting of the costo phrenic angle ; small pleural effusions are not excluded. IMPRESSION: Persistent left infiltrate, not significantly changed since 01/03/2020. Mild congestive ch anges are suggested. Reviewed, dictated and finalized at location A. IMPRESSION: Persistent left infiltrate, not significantly changed since 01/03/20 20. Mild congestive changes are suggested.
[2020-01-15 13:40] VITALS: BP 138/86; PULSE 96; RESP 24; TEMP 37.3; O2SAT 100
--- NOTE | 2020-01-15 13:46 | ECG_ITS ---
Measurements Intervals [place] Rate: 95 P: 40 MI: 151 QRS: 83 QRSD: 118 T: 103 QT: 379 QTc: 479 Interpretive Statements SINUS RHYTHM INTRAVENTRICULAR CONDUCTION DELAY CONSIDER INFERIOR INFARCT, AGE INDETERMINATE BORDERLINE T WAVE ABNORMALITY- LAT/HIGH LAT LEADS BASELINE WANDER- I, II, V4-V5 ABNORMAL ECG Electronically Signed On 01-15-2020 15:33:10 CDT by Mnauel Soler D.O.
[2020-01-15 13:58] VITALS: PULSE 95
[2020-01-15 14:08] LABS: Basophils Percent Auto 0.7 % (0.2-1.2); Eosinophils Absolute Auto 0.1 K/mm3 (0-0.3); Hematocrit 29.9 % (37.0-47.0); Hemoglobin 9.4 g/dL (12.0-15.0); Immature Granulocyte Absolute 0.02 K/mm3 (0.00-0.031); Immature Granulocyte Percent A 0.3 % (0-0.5); Lymphocytes Absolute Auto 1.01 K/mm3 (0.9-3.2); Lymphocytes Percent Auto 17.4 % (18.3-44.2); Mean Corpuscular HGB Conc 31.4 g/dl (32-36); Mean Corpuscular Hemoglobin 27.7 pg (26-34); Mean Corpuscular Volume 88.2 fl (80-100); Mean Platelet Volume 9.9 fl (7.4-10.4); Monocytes Absolute Auto 0.4 K/mm3 (0.1-0.6); Monocytes Percent Auto 7.4 % (2.6-8.5); Neutrophils Absolute Auto 4.3 K/mm3 (1.3-6.7); Neutrophils Percent Auto 73.2 % (45.5-73.1); Platelet Count Result 324 k/mm3 (150-375); Red Blood Count 3.39 M/mm3 (4.2-5.4); White Blood Count 5.8 K/mm3 (4.5-10.0)
[2020-01-15 14:18] LABS: Alveolar/Arterial O2 Gradient 95.1 mmHg; Base Excess ABG 3.9 mEq/l (+/-2.0); Fractional Inspired Oxygen 32 %; HCO3 ABG 28.6 mEq/l (22.0-26.0); Oxygen Saturation ABG 96.3 % (95.0-100.0); Oxyhemoglobin 92.7 % THb (90.0-100.0); PO2 ABG 81.6 mmHg (80.0-100.0); PO2 FiO2 Ratio Arterial Blood 2.55 %; Total Hemoglobin 9.9 g/dL (12.0-18.0); pH ABG 7.431 (7.350-7.450)
[2020-01-15 14:19] LABS: Device NASAL CANNULA; Site Drawn LEFT BRACHIAL
[2020-01-15 14:19] LABS: Alanine Aminotransferase 18 U/L (4-35); Albumin Level 4.3 g/dL (3.5-5.1); Alkaline Phosphatase 83 U/L (38-126); Anion Gap 9 mmol/L (8-16); Aspartate Amino Transferase 31 U/L (14-36); Bilirubin,Total 0.6 mg/dL (0.2-1.3); Blood Urea Nitrogen 19 mg/dL (7-17); Calcium 9.5 mg/dL (8.4-10.2); Carbon Dioxide 29 mmol/L (22-30); Chloride 92 mmol/L (98-107); Estimated Glomerular Filt Rate > 60; Glucose 117 mg/dL (65-105); Potassium 4.3 mmol/L (3.4-5.0); Prothrombin Time 13.3 Seconds (11.1-14.7); Sodium 130 mmol/L (137-145)
[2020-01-15 14:28] LABS: NT Pro B Type Natriuretic Pept 1360 PG/ML (5-100)
[2020-01-15 14:32] LABS: Troponin I < 0.012 ng/mL (0.000-0.034)
--- NOTE | 2020-01-15 16:11 | ED.WEAKNESS ---
HPI - Weakness General Chief complaint: Weakness Stated complaint: WEAKNESS Time Seen by Provider: 01/15/20 13:40 Source: patient Mode of arrival: ambulatory Limitations: no limitations History of Present Illness HPI Narrative: 64-year-old with a history of COPD, hypertension, diabetes s/p pericardial window done at [facility] was discharged from a rehab center few days ago here with complaints of marked weakness. Patient denies any fever or chest pain. She states that she is just I am weak . No history of nausea or vomiting or cough. MD Complaint: generalized weakness Onset (ago): day(s) (1) Duration: constant Location: generalized Migration: none Exacerbating factors: none Context: recent illness Associated symptoms: denies other symptoms Related Data Home Medications Medication Instructions Recorded Confirmed albuterol sulfate 90 mcg/actuation 1 puff INHALATION Q6H PRN 06/09/19 01/03/20 aerosol inhaler quetiapine 25 mg tablet 400 mg PO BID 06/09/19 01/03/20 Allergies Allergy/AdvReac Type Severity Reaction Status Date / Time levofloxacin Allergy Unknown Verified 02/16/18 07:08 Penicillins Allergy Unknown Verified 02/16/18 07:08 Sulfa (Sulfonamide Allergy Unknown Verified 02/16/18 07:08 Antibiotics) Review of Systems Review of Systems: All systems reviewed & are unremarkable except as noted in HPI and below Constitutional: Constitutional: Reports no additional constitutional complaints Eyes: Eyes: Reports no additional eye complaints ENT: Reports system reviewed and no additional complaints, except as documented Cardiovascular: Cardiovascular: Reports no additional cardiovascular complaints Respiratory: Respiratory: Reports no additional respiratory complaints Gastrointestinal: Gastrointestinal: Reports no additional gastrointestinal complaints Musculoskeletal: Musculoskeletal: Reports no additional musculoskeletal complaints Integumentary/Breasts: Skin/Breast: Reports system reviewed and no additional complaints, except as docu PMFSH Past Medical History Medical History Acute hypoxemic respiratory failure Atrial fibrillation Chronic depression Chronic obstructive pulmonary disease Chronic pain syndrome Chronic respiratory failure with hypoxia Elevated BUN Lung nodule PAF (paroxysmal atrial fibrillation) Psychiatric disorder Pulmonary fibrosis Surgical History Surgical History H/O pericardiectomy S/P pericardial window creation Family History Family History Father Acute myocardial infarction, Onset Age: 56 Mother Cerebrovascular accident Social History Social History Social History: The patient tells me she is , and has 10 children. She apparently quit smoking when she was hospitalized in November. Smoking packs per day: 1.5 Smoking cigarettes per day: 30.0 Smoking status: Former smoker Tobacco type: cigarettes Second hand tobacco smoke exposure: Yes Alcohol intake: unknown Substance use: unknown Substance use type: does not use Gender identity (if verbalized by the patient): Female Spiritual care concerns: No Exam Narrative: Exam Narrative: GENERAL: Well-appearing, thin, and in no acute distress. HEAD: Normocephalic, atraumatic. EYES: PERRLA and EOMI. ENT: Nares clear, Mucous membranes moist. NECK: Supple. CHEST: Clear to auscultation. No respiratory distress. HEART: Regular rate and rhythm. No murmur heard. Normal peripheral pulses. ABDOMEN: Soft, nontender, nondistended, normal active bowel sounds. EXTREMITIES: Normal range of motion. No edema. SKIN: Warm, dry, no rash. NEURO: No focal deficits. Alert and oriented x3. PSYCH: Normal mood and affect. Course Vital Signs Vital signs: Vital Signs
[2020-01-15 16:22] VITALS: BP 153/67; PULSE 90; RESP 18; O2SAT 100
== END 2020-01-15 16:24 | disposition home or self-care (01) ==
PROVIDERS: Emergency Provider Family Medicine; PCP Nurse Practitioner
DX: R53.1 Weakness (principal); J44.9 Chronic obstructive pulmonary disease, unspecified; I10 Essential (primary) hypertension; E11.9 Type 2 diabetes mellitus without complications; G89.4 Chronic pain syndrome; J96.11 Chronic respiratory failure with hypoxia; I48.0 Paroxysmal atrial fibrillation; J84.10 Pulmonary fibrosis, unspecified; F32.9 Major depressive disorder, single episode, unspecified; Z87.891 Personal history of nicotine dependence; I45.9 Conduction disorder, unspecified; R94.31 Abnormal electrocardiogram [ECG] [EKG]
CPT/HCPCS: 36415; 36600; 71045; 80053; 82805; 83880; 84484; 85025; 85610; 93005; 99284

== ENCOUNTER 2020-12-08 19:04 | Emergency (ER) | payer MEDICARE, MEDICAID, SELFPAY ==
--- NOTE | ~2020-12-08 | XR_ITS ---
EXAMINATION: XR chest 1V portable INDICATION: Shortness of breath and cough TECHNIQUE: Portable AP chest at 1957 hours COMPARISON: 01/15/2020 FINDINGS: The lungs are free of acute opacities. There is no pleural effusion or pneumothorax. Median sternotomy wires and mediastinal surgical clips are seen, likely from prior coronary artery bypass g rafting. The heart size is normal. IMPRESSION: 1. No acute cardiopulmonary abnormality. Reviewed, dictated and finalized at location A.
--- NOTE | ~2020-12-08 | CT_ITS ---
EXAMINATION: CT abdomen pelvis w con DATE: 12/09/2020 00:09 INDICATION: Left lower quadrant abdominal pain. TECHNIQUE: Computed tomography (CT) of the abdomen and pelvis was performed without intravenous contr ast. Automated exposure control and iterative reconstruction technique were employed. The dose-length product was 879.88 mGy-cm. COMPARISON: 10/26/2014 FINDINGS: Moderate emphysema at the lung bases. Mild atelectasis at the right lower lobe and to lesser degree a t the lingula and left lower lobe. Heart size is normal. Atherosclerotic coronary artery calcificatio n. Median sternotomy likely for prior coronary artery bypass grafting. Aortic valve calcification. No pericardial or pleural effusion. Small sliding-type hiatal hernia. Cholecystectomy clips the gallbladder fossa. Liver, pancreas and bilateral adrenal glands are normal. Persistent splenomegaly which measures up to 14.7 cm in length. A couple subcentimeter cysts at the lower pole of the left kidney. Small amount of excreted contrast in the bilateral renal collecting sy stems. No hydronephrosis. Bowels including the appendix are normal. Bladder is normal. The uterus is not identified and has likely been surgically resected. No free intraperitoneal gas or fluid. No pathologically enlarged abdominal or pelvic lymphadenopathy. There is calcified atherosclerosis of the aorta and many of the other arteries. Advanced left hip os teoarthritis with prominent osteolysis and remodeling of the left femoral head and acetabulum resulti ng in superolateral migration of the femoral head within the enlarged acetabulum. Partially visualize d right total hip arthroplasty. Severe disc height loss with sclerotic endplate changes at L4-L5. IMPRESSION: 1. No acute intra-abdominal/pelvic process. 2. Moderate emphysema at the lung bases. 3. Small sliding-type hiatal hernia. 4. Nonspecific splenomegaly which may be related to patient body habitus. 5. Interval progression of now advanced left hip osteoarthritis. Reviewed, dictated and finalized at location A.
[2020-12-08 19:02] VITALS: PULSE 105; RESP 20; TEMP 36.7; O2SAT 99
[2020-12-08 19:08] VITALS: O2SAT 100
--- NOTE | 2020-12-08 19:51 | ECG_ITS ---
Measurements Intervals [place] Rate: 78 P: 45 ME: 159 QRS: 39 QRSD: 110 T: 46 QT: 410 QTc: 469 Interpretive Statements SINUS RHYTHM RSR' IN V1 OR V2, CONSIDER RIGHT VENTRICULAR HYPERTROPHY OR RIGHT VCD INFERIOR INFARCT, AGE INDETERMINATE BASELINE ARTIFACT- I, II, III, AVR, AVL, AVF, V1-V6 ABNORMAL ECG Electronically Signed On 12-09-2020 7:06:30 CDT by Manuel Soler D.O.
--- NOTE | 2020-12-08 19:53 | ED.SOB ---
HPI - SOB/Dyspnea General Chief Complaint: Shortness of Breath/Dyspnea Stated Complaint: CP/ SOB Time Seen by Provider: 12/08/20 19:09 History of Present Illness HPI Narrative: Multiple complaints. She reports that she has been more short of breath than usual for the past few days. This is associated with cough and pleuritic chest pain. cough is productive of white sputum. Additionally she reports nausea and LLQ abdominal pain. The pain is moderate. Related Data Home Medications Medication Instructions Recorded Confirmed albuterol sulfate 90 mcg/actuation 1 puff INHALATION Q6H PRN 06/09/19 01/03/20 aerosol inhaler quetiapine 25 mg tablet 400 mg PO BID 06/09/19 01/03/20 Allergies Allergy/AdvReac Type Severity Reaction Status Date / Time levofloxacin Allergy Unknown Hives Verified 12/08/20 19:23 Penicillins Allergy Unknown Unknown Verified 12/08/20 19:23 Sulfa (Sulfonamide Allergy Unknown Unknown Verified 12/08/20 19:23 Antibiotics) Review of Systems Review of Systems: All systems reviewed & are unremarkable except as noted in HPI and below Constitutional: Constitutional: Denies fever(s) ENT: Denies sore throat Cardiovascular: Cardiovascular: Reports as per HPI and Denies radiating jaw, neck or arm pain Respiratory: Respiratory: Reports as per HPI Gastrointestinal: Gastrointestinal: Denies constipation and Denies diarrhea Genitourinary: Genitourinary: Denies hematuria and Denies dysuria Neurologic: Denies dizziness and Denies weakness PMFSH Past Medical History Medical History Acute hypoxemic respiratory failure Atrial fibrillation Chronic depression Chronic obstructive pulmonary disease Chronic pain syndrome Chronic respiratory failure with hypoxia Elevated BUN Lung nodule PAF (paroxysmal atrial fibrillation) Psychiatric disorder Pulmonary fibrosis Surgical History Surgical History H/O pericardiectomy S/P pericardial window creation Family History Family History Father Acute myocardial infarction, Onset Age: 56 Mother Cerebrovascular accident Social History Social History Social History: The patient tells me she is , and has 10 children. She apparently quit smoking when she was hospitalized in November. Smoking packs per day: 1.5 Smoking cigarettes per day: 30.0 Smoking status: Former smoker Tobacco type: cigarettes Second hand tobacco smoke exposure: Yes Alcohol intake: unknown Substance use: unknown Substance use type: does not use Gender identity (if verbalized by the patient): Female Spiritual care concerns: No Exam Const: General: no acute distress, alert and ill appearing chronically Orientation/consciousness: patient oriented x3 HENMT: Head: normal to inspection Neck: Neck: normal visual inspection and no lymphadenopathy Resp: Effort & Inspection: normal respiratory effort Auscultation: rhonchi Cardio: Rate: regular rate Rhythm: regular rhythm GI: Inspection: non-distended GI Palp: Yes Soft to palpation, Yes Tenderness to palpation present (GI) (LLQ), No Guarding due to palpation present (GI) and No Rebound tenderness present Skin: General skin exam: normal color Neuro: General: patient oriented x3, moves all extremities, no focal motor deficits and CN's II-XI intact bilaterally Speech: normal speech Extrem: General: normal to inspection and no edema Course Vital Signs Vital signs: Vital Signs Temperature 36.7 C 12/08/20 19:02 Pulse Rate 105 H 12/08/20 19:02 Respiratory Rate 20 12/08/20 19:02 Pulse Oximetry 99 12/08/20 19:02 Temperature 36.7 C 12/08/20 19:02 Pulse Rate 92 12/09/20 02:58 Respiratory Rate 18 12/09/20 02:29 Blood Pressure 120/67 12/09/20 02:58
[2020-12-08 20:43] LABS: Basophils Percent Auto 0.4 % (0.2-1.2); Eosinophils Absolute Auto 0.1 K/mm3 (0-0.3); Eosinophils Percent Auto 1.4 % (0-4.4); Hematocrit 33.2 % (37.0-47.0); Hemoglobin 10.5 g/dL (12.0-15.0); Immature Granulocyte Absolute 0.02 K/mm3 (0.00-0.031); Immature Granulocyte Percent A 0.2 % (0-0.5); Lymphocytes Absolute Auto 1.98 K/mm3 (0.9-3.2); Lymphocytes Percent Auto 23.9 % (18.3-44.2); Mean Corpuscular HGB Conc 31.6 g/dl (32-36); Mean Corpuscular Hemoglobin 28.3 pg (26-34); Mean Corpuscular Volume 89.5 fl (80-100); Mean Platelet Volume 9.9 fl (7.4-10.4); Monocytes Absolute Auto 0.8 K/mm3 (0.1-0.6); Monocytes Percent Auto 9.2 % (2.6-8.5); Neutrophils Absolute Auto 5.4 K/mm3 (1.3-6.7); Neutrophils Percent Auto 64.9 % (45.5-73.1); Platelet Count Result 244 k/mm3 (150-375); Red Blood Count 3.71 M/mm3 (4.2-5.4); Red Cell Distribution Width 12.8 % (11.5-14.5); White Blood Count 8.3 K/mm3 (4.5-10.0)
[2020-12-08 20:52] LABS: INR 0.9
[2020-12-08 20:55] LABS: Alanine Aminotransferase 14 U/L (4-35); Albumin Level 4.1 g/dL (3.5-5.1); Alkaline Phosphatase 101 U/L (38-126); Anion Gap 8 mmol/L (8-16); Aspartate Amino Transferase 23 U/L (14-36); Bilirubin,Total 0.2 mg/dL (0.2-1.3); Blood Urea Nitrogen 14 mg/dL (7-17); CRP 0.7 mg/dL (<1.0); Calcium 9.3 mg/dL (8.4-10.2); Carbon Dioxide 30 mmol/L (22-30); Chloride 99 mmol/L (98-107); Estimated CRCL calculation 80 ml/min; Estimated Glomerular Filt Rate > 60; Glucose 115 mg/dL (65-110); Potassium 3.4 mmol/L (3.4-5.0); Sodium 137 mmol/L (137-145)
[2020-12-08 21:59] LABS: Add Urine Microscopic? YES; Appearance Urine Cloudy (Clear); Bilirubin Urine Negative (Negative); Blood Urine Negative (Negative); Color Urine Yellow (Yellow); Glucose Urine UA Negative (Negative); Ketones Urine Negative (Negative); Leukocyte Esterase Ur 1+ LEU/UL (Negative); Mucus Urine Few /lpf; Nitrate Urine Negative (Negative); Protein Urine Negative (Negative); RBC Urine 0-2 /hpf (0-2); Specific Grav Ur 1.013 (1.001-1.035); Squamous Epithelial Cell Urine Moderate /hpf (Few); Urobilinogen Urine Negative mg/dL (<2.0)
[2020-12-08 23:01] VITALS: PULSE 78; RESP 14
[2020-12-08] MEDS: IPRATROPIUM BR 0.02% INH SOLN 0.5 MG/2.5 ML VIAL INHALATION (23:02)
[2020-12-08] MEDS: ALBUTEROL SULFATE NEB 2.5 MG/0.5 ML INH 5 MG INHALATION (23:03)
[2020-12-08 23:05] VITALS: PULSE 78; RESP 14
[2020-12-08 23:10] VITALS: BP 99/60; PULSE 78; RESP 17; O2SAT 100
[2020-12-09 00:28] VITALS: BP 108/75; PULSE 78; RESP 17; O2SAT 100
[2020-12-09 02:29] VITALS: BP 112/63; PULSE 85; RESP 18; O2SAT 99
[2020-12-09] MEDS: BENZONATATE 100 MG CAPSULE 200 MG PO (02:48)
[2020-12-09 02:58] VITALS: BP 120/67; PULSE 92; O2SAT 100
== END 2020-12-09 02:58 | disposition home or self-care (01) ==
PROVIDERS: Emergency Provider Emergency Medicine; PCP Nurse Practitioner
DX: R06.02 Shortness of breath (principal); R10.32 Left lower quadrant pain; I48.0 Paroxysmal atrial fibrillation; J43.9 Emphysema, unspecified; J96.11 Chronic respiratory failure with hypoxia; J84.10 Pulmonary fibrosis, unspecified; G89.4 Chronic pain syndrome; F32.9 Major depressive disorder, single episode, unspecified; Z79.84 Long term (current) use of oral hypoglycemic drugs; Z87.891 Personal history of nicotine dependence; K44.9 Diaphragmatic hernia without obstruction or gangrene; R16.1 Splenomegaly, not elsewhere classified; M16.12 Unilateral primary osteoarthritis, left hip
CPT/HCPCS: 36415; 71045; 74177; 80053; 81001; 83605; 85025; 85610; 85730; 86140; 87040; 87086; 87088; 93005; 94640; 99284; A9270; Q9967

== ENCOUNTER 2021-02-07 13:50 | Outpatient (CLI) | payer MEDICARE, MEDICAID, SELFPAY ==
--- NOTE | ~2021-02-07 | CT_ITS ---
EXAMINATION: CT diagnostic chest wo con DATE: 02/07/2021 14:23 INDICATION: COPD, chronic respiratory failure TECHNIQUE: Computed tomography (CT) of the chest was performed without intravenous contrast. The dose -length product (DLP) was 370.19 mGy-cm. Automated exposure control and iterative reconstruction tech [employer] were employed. COMPARISON: 10/29/2015 FINDINGS: There is severe emphysema. There are patchy nodular and airspace opacities of the lower lob es. A 6 mm nodule is seen in the lateral aspect of the right lower lobe on image 66. There is no pleu ral effusion or pneumothorax. The heart size is normal. There is mild mediastinal lymphadenopathy. Fo r instance a precarinal lymph node measures up to 11 mm. There are changes of interval cardiac surger y. There is an epigastric ventral hernia containing fat. The gallbladder is surgically absent. There is moderate thoracic spondylosis. IMPRESSION: 1. Patchy nodular and airspace opacities of the lungs, likely infectious or inflammatory. Follow-up C T in three months is recommended. 2. Severe emphysema. 3. Mild mediastinal lymphadenopathy, likely reactive. Reviewed, dictated and finalized at location A. IMPRESSION: 1. Patchy nodular and airspace opacities of the lungs, likely infectious or inf lammatory. Follow-up CT in three months is recommended. 2. Severe emphysema. 3. Mild mediastinal lymphadenopathy, likely reactive.
== END 2021-02-07 13:51 | disposition home or self-care (01) ==
PROVIDERS: PCP Nurse Practitioner
DX: G89.4 Chronic pain syndrome (principal); J44.9 Chronic obstructive pulmonary disease, unspecified; J96.10 Chronic respiratory failure, unspecified whether with hypoxia or hypercapnia
CPT/HCPCS: 71250

== ENCOUNTER 2021-02-09 17:34 | Inpatient (IN) | payer MEDICARE, MEDICAID, SELFPAY ==
[2021-02-09] VITALS (17 sets, daily range): BP systolic 103–137; BP diastolic 44–99; PULSE 87–111; RESP 14–25; TEMP 36.9–37.5; O2SAT 90–100; BMI 38.4
--- NOTE | ~2021-02-09 | XR_ITS ---
EXAMINATION: XR chest 1V portable INDICATION: Cough and hypoxia TECHNIQUE: Portable AP chest at 1859 hours COMPARISON: 12/08/2020 FINDINGS: There are patchy opacities throughout all lung zones. Emphysema is noted. The heart size is normal. There is no pleural effusion or pneumothorax. Median sternotomy wires are consistent with pr ior cardiac surgery. IMPRESSION: 1. Patchy bilateral airspace opacities, consistent with atelectasis versus pneumonia. Reviewed, dictated and finalized at location A. IMPRESSION: 1. Patchy bilateral airspace opacities, consistent with atelectasis versus pneu monia.
--- NOTE | 2021-02-09 17:48 | ED.GENADULT ---
HPI - General Adult General Chief complaint: Shortness of Breath/Dyspnea Stated complaint: sob Time Seen by Provider: 02/09/21 17:48 Source: patient, EMS and old records reviewed Mode of arrival: EMS Limitations: altered mental status History of Present Illness HPI narrative: Patient was brought in by EMS from her [facility] for fever, and worsening shortness of breath. Patient is awake and does attempt to answer questions but not always appropriately. Per EMS she had a temp of 100 and decreasing oxygen saturation, she does wear 2 L of oxygen at baseline. She was Covid tested on 02/04 and was negative, and she has been vaccinated. Onset (ago): hour(s) Related Data Home Medications Medication Instructions Recorded Confirmed albuterol sulfate 90 mcg/actuation 1 puff INHALATION Q6H PRN 06/09/19 02/09/21 aerosol inhaler quetiapine 25 mg tablet 100 mg PO BID 06/09/19 02/09/21 aspirin 81 mg PO DAILY 02/09/21 02/09/21 atorvastatin 40 mg PO DAILY 02/09/21 02/09/21 cyclobenzaprine 5 mg PO TID 02/09/21 02/09/21 dicyclomine 20 mg PO QID 02/09/21 02/09/21 fluticasone propionate 1 spray INTRANASAL DAILY 02/09/21 02/09/21 gabapentin 800 mg PO TID 02/09/21 02/09/21 icosapent ethyl [Vascepa] 2 g PO BID 02/09/21 02/09/21 ipratropium-albuterol 3 ml INHALATION QID 02/09/21 02/09/21 loratadine [Allergy Relief 10 mg PO DAILY 02/09/21 02/09/21 (loratadine)] melatonin 3 mg PO HS 02/09/21 02/09/21 nicotine 1 patch TRANSDERMAL DAILY 02/09/21 02/09/21 omeprazole 20 mg PO DAILY 02/09/21 02/09/21 ondansetron 4 mg PO Q6H PRN 02/09/21 02/09/21 oxycodone 10 mg PO Q8-10H PRN 02/09/21 02/09/21 ramipril 1.25 mg PO DAILY 02/09/21 02/09/21 ropinirole 0.5 mg PO DAILY 02/09/21 02/09/21 Allergies Allergy/AdvReac Type Severity Reaction Status Date / Time levofloxacin Allergy Unknown Hives Verified 02/09/21 23:21 Penicillins Allergy Unknown Unknown Verified 02/09/21 23:21 Sulfa (Sulfonamide Allergy Unknown Unknown Verified 02/09/21 23:21 Antibiotics) Review of Systems Review of Systems: ROS unobtainable: Yes unobtainable due to mental status PMFSH Past Medical History Medical History (Updated 02/09/21 @ 23:02 by Javier Gallo MD) Acute hypoxemic respiratory failure Atrial fibrillation Chronic depression Chronic obstructive pulmonary disease Chronic pain syndrome Chronic respiratory failure with hypoxia Elevated BUN Lung nodule PAF (paroxysmal atrial fibrillation) Psychiatric disorder Pulmonary fibrosis Surgical History Surgical History H/O pericardiectomy S/P pericardial window creation Family History Family History Father Acute myocardial infarction, Onset Age: 56 Mother Cerebrovascular accident Social History Social History Social History: The patient tells me she is , and has 10 children. She apparently quit smoking when she was hospitalized in November. Smoking packs per day: 1.5 Smoking cigarettes per day: 30.0 Smoking status: Former smoker Tobacco type: cigarettes Second hand tobacco smoke exposure: Yes Alcohol intake: never Substance use: never Substance use type: does not use Gender identity (if verbalized by the patient): Female Sexual Orientation (if Verbalized by the Patient): Straight or Heterosexual Spiritual care concerns: No Exam Const: General: alert and confusion Nutritional Appearance: obese HENMT: Head: normal to inspection Mouth: Yes dry mucous membranes Throat: posterior oropharynx normal Eyes: Conjunctivae: conjunctivae normal Pupils: Equal, round and reactive pupils present Resp: Effort & Inspection: labored (slightly) Auscultation: rhonchi throughout and wheezes expiratory wheezes and lower bilaterally Cardio: Rate: regular rate Rhythm: regular rhythm GI: GI Palp: Yes Soft to
--- NOTE | 2021-02-09 17:57 | ECG_ITS ---
Measurements Intervals Comfort Rate: 93 P: 30 VT: 124 QRS: 52 QRSD: 106 T: 46 QT: 370 QTc: 460 Interpretive Statements SINUS RHYTHM BORDERLINE R WAVE PROGRESSION, ANTERIOR LEADS INFERIOR INFARCT, AGE INDETERMINATE BASELINE ARTIFACT- II, III, AVR, AVF, V3-V6 ABNORMAL ECG Electronically Signed On 02-09-2021 18:20:20 CDT by Manuel Soler D.O.
[2021-02-09] MEDS: ALBUTEROL SULFATE NEB 2.5 MG/3 ML INH INHALATION (18:35)
[2021-02-09 18:37] LABS: INR 0.9
[2021-02-09 18:40] LABS: Alveolar/Arterial O2 Gradient 108.5 mmHg; Base Excess ABG 3.8 mEq/l (+/-2.0); Fractional Inspired Oxygen 32 %; HCO3 ABG 29.2 mEq/l (22.0-26.0); Oxygen Content ABG 11.9 %vol (16.0-22.0); Oxygen Saturation ABG 91.8 % (95.0-100.0); Oxyhemoglobin 89.7 % THb (90.0-100.0); PCO2 ABG 48.5 mmHg (35.0-45.0); PO2 ABG 62.9 mmHg (80.0-100.0); PO2 FiO2 Ratio Arterial Blood 1.97 %; Total Hemoglobin 9.4 g/dL (12.0-18.0); pH ABG 7.398 (7.350-7.450)
[2021-02-09 18:41] LABS: Device NASAL CANNULA; Site Drawn LEFT BRACHIAL
[2021-02-09 18:43] LABS: Basophils Absolute Auto 0.1 K/mm3 (0.0-0.1); Basophils Percent Auto 0.5 % (0.2-1.2); Eosinophils Absolute Auto 0.1 K/mm3 (0-0.3); Eosinophils Percent Auto 0.9 % (0-4.4); Hematocrit 27.2 % (37.0-47.0); Hemoglobin 8.6 g/dL (12.0-15.0); Immature Granulocyte Absolute 0.12 K/mm3 (0.00-0.031); Immature Granulocyte Percent A 0.9 % (0-0.5); Lymphocytes Absolute Auto 1.08 K/mm3 (0.9-3.2); Lymphocytes Percent Auto 8.1 % (18.3-44.2); Mean Corpuscular HGB Conc 31.6 g/dl (32-36); Mean Corpuscular Hemoglobin 27.7 pg (26-34); Mean Corpuscular Volume 87.7 fl (80-100); Mean Platelet Volume 9.8 fl (7.4-10.4); Monocytes Absolute Auto 1.2 K/mm3 (0.1-0.6); Monocytes Percent Auto 9.2 % (2.6-8.5); Neutrophils Absolute Auto 10.7 K/mm3 (1.3-6.7); Neutrophils Percent Auto 80.4 % (45.5-73.1); Platelet Count Result 194 k/mm3 (150-375); Red Cell Distribution Width 14.5 % (11.5-14.5); White Blood Count 13.3 K/mm3 (4.5-10.0)
[2021-02-09 18:45] LABS: Anion Gap 7 mmol/L (8-16); Blood Urea Nitrogen 24 mg/dL (7-17); Calcium 8.5 mg/dL (8.4-10.2); Carbon Dioxide 31 mmol/L (22-30); Chloride 89 mmol/L (98-107); Estimated CRCL calculation 51 ml/min; Estimated Glomerular Filt Rate 56; Glucose 130 mg/dL (65-110); Potassium 3.3 mmol/L (3.4-5.0); Sodium 127 mmol/L (137-145)
[2021-02-09 18:58] LABS: NT Pro B Type Natriuretic Pept 3170 pg/mL (5-100); Troponin I < 0.012 ng/mL (0.000-0.034)
[2021-02-09 20:11] LABS: Lactic Acid Reflex 0.7 mmol/L (0.7-2.1)
[2021-02-09] MEDS: SODIUM CHLORIDE 0.9% IV 1,000 ML 999 ML IV CONT (20:40)
--- NOTE | 2021-02-09 21:18 | PM.IMHP ---
H&P: HPI History of Present Illness Date/Time: 02/09/21 21:18 Chief Complaint: Shortness of breath Narrative: This is a 65-year-old female whole is currently living at assisted living facility patient was brought to the emergency room due to a staph concerns for patient's shortness of breath and low pulse ox. Past medical history significant for COPD/emphysema chronic hypoxic respiratory failure on 2 L of supplemental oxygen by nasal cannula, paroxysmal atrial fibrillation, pulmonary fibrosis chronic pain syndrome, patient is a former smoker of 50 pack a year she quit roughly 4 weeks ago. Patient has been complaining of a productive cough of greenish sputum, copious, has been feeling hot and cold, generalized malaise, fatigue, generalized weakness, shortness of breath, she has require higher amount of her usual oxygen increased to 4 L. Preliminary workup in emergency room was significant for WBC 13,000, sodium of 130, chloride of 87, a brain natriuretic peptide was elevated at over 3,000, chest x-ray significant for patchy lung infiltrates consistent with pneumonia. Patient had a COVID-19 test that returned negative on February 04. Patient had been on Z-Giovani and Solu-Medrol in the outpatient setting. CT of the chest on 02/07 showed severe emphysema and patchy nodular airspace disease. Pulse ox remained in between 90-94% on 4 L of oxygen by nasal cannula. Review of Systems Constitutional: Constitutional: Reports chills, Reports fatigue, Reports fever(s), Reports lethargy, Reports malaise, Denies night sweats and Reports weakness Eyes: Eyes: Denies change in vision ENT: Denies dysphagia, Denies nasal congestion, Denies nasal discharge, Denies nasal obstruction and Denies odynophagia Cardiovascular: Cardiovascular: Denies chest pain, Denies irregular heart rhythm, Denies claudication, Reports leg edema, Denies radiating jaw, neck or arm pain, Denies palpitations, Denies dyspnea and Denies orthopnea Respiratory: Respiratory: Reports change in phlegm color, Reports cough, Reports excessive phlegm production and Reports dyspnea Gastrointestinal: Gastrointestinal: Denies dyspepsia, Denies heartburn, Denies nausea and Denies vomiting Genitourinary: Genitourinary: Reports no additional female genitourinary complaints Musculoskeletal: Musculoskeletal: Reports no additional musculoskeletal complaints Integumentary/Breasts: Skin/Breast: Reports system reviewed and no additional complaints, except as docu Neurologic: Reports system reviewed and no additional complaints, except as documented Psychiatric: Psychiatric: Reports no additional psychiatric complaints Endocrine: Endocrine: Reports no additional endocrine complaints Hematologic/Lymphatic: Hematologic/Lymphatic: Reports no additional hematologic/lymphatic complaints Allergic/Immunologic: Allergic/Immunologic: Reports no additional allergic/immunologic complaints [facility] Past Medical History Medical History (Updated 02/09/21 @ 23:02 by Javier Gallo MD) Acute hypoxemic respiratory failure Atrial fibrillation Chronic depression Chronic obstructive pulmonary disease Chronic pain syndrome Chronic respiratory failure with hypoxia Elevated BUN Lung nodule PAF (paroxysmal atrial fibrillation) Psychiatric disorder Pulmonary fibrosis Surgical History Surgical History H/O pericardiectomy S/P pericardial window creation Family History Family History Father Acute myocardial infarction, Onset Age: 56 Mother Cerebrovascular accident Social History Social History Social History: The patient tells me she is , and has 10 children. She apparently quit smoking when she was hospitalized in November. Smoking packs per day: 1.5 Smoking cigarettes per day: 30.0 Smoking status: Former smoker Tobacco
--- NOTE | 2021-02-09 22:16 | PC.NURSE ---
This patient, Queenie Ambriz, was admitted to 3 Med Surg Room 304-01 @22:00. Report taken from BA ANNA in ER. Patient/family oriented to hospital policies and general routines including ID bracelet, bed and alarms, visiting hours, pain management, procedures, bathroom and other care routines, personal items, smoking policy, room service/diet, and visiting hours. Information on how to activate the Rapid Response Team has been discussed. Patient/Family are encouraged to report perceived risks to care and to ask questions if they do not understand what they are told or what they should do.
[2021-02-10] VITALS (17 sets, daily range): BP systolic 102–166; BP diastolic 51–73; PULSE 83–108; RESP 20–24; TEMP 36.2–36.8; O2SAT 92–96
[2021-02-10] MEDS: IPRATROPIUM BR 0.02% INH SOLN 0.5 MG/2.5 ML VIAL INHALATION ×6 (00:30→21:46)
[2021-02-10] MEDS: ALBUTEROL SULFATE NEB 2.5 MG/0.5 ML INH INHALATION ×6 (00:30→21:46)
[2021-02-10] MEDS: AZTREONAM 1 GM in DEXTROSE 5% IN WATER 50 ML 100 ML IVPB ×4 (00:47→21:18)
[2021-02-10] MEDS: busPIRone HCL 5 MG TABLET 15 MG PO ×4 (00:48→21:20)
[2021-02-10] MEDS: GABAPENTIN 400 MG CAPSULE 800 MG PO ×4 (00:48→16:26)
[2021-02-10] MEDS: CYCLOBENZAPRINE HCL 5 MG TABLET PO ×4 (00:48→16:26)
[2021-02-10] MEDS: DICYCLOMINE HCL 10 MG CAPSULE 20 MG PO ×5 (00:48→21:19)
[2021-02-10] MEDS: MELATONIN 3 MG TABLET PO ×2 (00:48→21:19)
[2021-02-10] MEDS: clonazePAM (*CRX) 0.5 MG TABLET 1 MG PO ×2 (00:48→21:19)
--- NOTE | 2021-02-10 07:05 | PM.IMPN ---
Progress Note: A&P Additional Plan START OF DOCTOR MARCI?S PROGRESS NOTE Subjective: The patient currently rates her respiratory status as a 5/10 intensity baseline. She indicates that her respiratory status has improved compared to the way she was feeling upon presentation to the hospital on February 09, 2021. Overnight she has fever, rigors, nausea, vomiting, cough, wheeze, abdominal pain, chest pain, or any other concerns or complaints. I have explained to the patient her current medical condition plan of care and answered all her questions Objective: General: -Alert -No acute distress -No dyspnea -No tachypnea Heart: -Regular rate -iRegular rhythm -No murmurs -No gallops -No rubs Lungs: -No wheeze -No rhonchi -No rales -distant breath sounds bilaterally Abdomen: -Normal bowel sounds in all four quadrants -No rebound -No guarding -No tenderness Extremities: -2/4 pulse in all four extremities -No clubbing -No cyanosis -trace bipedal edema Additional Details / Additional Findings / Exceptions / Miscellaneous: Pertinent Laboratory Results / Pertinent Radiology Results / Pertinent Diagnostic Results / Pertinent Vital Signs: Heart rate 101 beats per minute, white blood count 30.3, hemoglobin 8.6, sodium 107, potassium 3.3 Assessment / Plan: Pneumonia. Azithromycin 5 mg IV daily plus aztreonam 1 g IV q.8 hours plus albuterol 2.5 mg nebulized q.4 hours post Atrovent nebulized q.6 hours Pulmonary fibrosis/COPD, patient O2 dependent 2 L. Albuterol 2.5 mg nebulized q.4 hours plus aztreonam 1 g IV q.8 hours plus Ativan oral 40 mg IV q.8 hours Paroxysmal atrial fibrillation Chronic pain Depression. Zoloft 100 mg p.o. daily Lung nodule. Patient will require CT chest with IV contrast in May 2021 for reassessment Anxiety. BuSpar 15 mg p.o. q.8 hours plus Klonopin 1 mg p.o. q.h.s. Muscle spasm. Flexeril 5 mg p.o. q.8 hours Hyperlipidemia. Lipitor 40 mg p.o. q.h.s. post [place] 3 fatty acids 2 g p.o. b.i.d. Neuropathy. Gabapentin 100 mg p.o. q.8 hours Orthostatic hypotension Constipation Restless legs syndrome. Requip 0.5 mg p.o. q.h.s. Hypertension. Altace 1.25 mg p.o. daily Anemia. Monitor hemoglobin level intermittently. Check serum ferritin, iron panel, fecal occult blood Hyponatremia, chronic. Will monitor sodium level intermittently. IV normal saline at 75 mL/hour Hypokalemia. Monitor potassium levels intermittently and supplement as necessary Grade 1 diastolic dysfunction IBS. Bentyl 20 mg p.o. q.i.d. Seasonal allergies. Claritin 10 mg p.o. daily plus Flonase: 50 mcg per spray: 1 puff in each naris daily Smoker. Nicotine patch 21 mg daily. Patient will be counseled regarding smoking cessation GI prophylaxis. Protonix 40 mg p.o. daily DVT prophylaxis. Bilateral SCDs Disposition: Anticipate discharge in 24 hours END OF DOCTOR MARCI?S PROGRESS NOTE Subjective Date/time seen: 02/10/21 07:05 Objective Data Vital Signs Vital Signs: Vital Signs - 24 hr 02/09/21 17:58 02/09/21 18:35 02/09/21 18:42 Temperature 99.5 F Pulse Rate 97 91 87 Respiratory Rate 14 21 H 21 H Blood Pressure 110/98 H Pulse Oximetry 99 02/09/21 19:29 02/09/21 19:36 02/09/21 19:51 Temperature Pulse Rate 98 100 Respiratory Rate 24 H Blood Pressure 108/87 Pulse Oximetry 98 100 02/09/21 19:57 02/09/21 20:00 02/09/21 20:01 Temperature Pulse Rate 111 H Respiratory Rate 23 H 24 H 22 H Blood Pressure Pulse Oximetry 92 92 92 02/09/21 20:15 02/09/21 20:59 02/09/21 21:08 Temperature Pulse Rate 94 103 H 104 H Respiratory Rate 25 H 19 24 H Blood Pressure 103/53 L 105/87 Pulse Oximetry 93 98 02/09/21 21:15 02/09/21 21:17 02/09/21 21:30 Temperature Pulse Rate 94 93 92 Respiratory Rate 19 21 H 23 H Blood Pressure Pulse Oximetry 91 94 02/09/21 21:45 02/09/21 22:00 02/10/21 00
[2021-02-10] MEDS: SODIUM CHLORIDE 0.9% IV 1,000 ML 75 ML IV CONT (07:40)
[2021-02-10] MEDS: methylPREDNISolone SOD SUCC 40 MG VIAL IV PUSH ×3 (07:51→21:19)
[2021-02-10 08:22] LABS: Iron 13 ug/dL (37-170)
[2021-02-10 08:31] LABS: Percent Iron Saturation 5 % (20-50)
[2021-02-10] MEDS: NICOTINE (*PBKC) 21 MG PATCH 1 PATCH TRANSDERM (09:08)
[2021-02-10] MEDS: OMEGA 3 POLYUNSAT FATTY ACIDS 1 GM CAP 2 GM PO ×2 (09:10→16:26)
[2021-02-10] MEDS: PANTOPRAZOLE 40 MG TABLET PO (09:11)
[2021-02-10] MEDS: SERTRALINE HCL 50 MG TABLET 100 MG PO (09:12)
[2021-02-10] MEDS: LORATADINE 10 MG TABLET PO (09:12)
[2021-02-10] MEDS: CHOLECALCIFEROL 1,000 UNITS TABLET 1000 UNITS PO (09:12)
[2021-02-10] MEDS: ASPIRIN 81 MG ENTERIC TABLET PO (09:12)
[2021-02-10] MEDS: ATORVASTATIN 40 MG TABLET PO (09:12)
[2021-02-10] MEDS: FLUTICASONE PROPIONATE 0.05% NA SPR 16 GM BTL (*BKC) 1 SPRAY NASAL (09:13)
[2021-02-10] MEDS: oxyCODONE HCL (*CRX) 5 MG TAB IR 10 MG PO (10:50)
[2021-02-10] MEDS: rOPINIRole HCL 0.5 MG TABLET PO (21:19)
[2021-02-11] VITALS (9 sets, daily range): BP systolic 161; BP diastolic 72; PULSE 82–104; RESP 20–22; TEMP 35.9; O2SAT 94–96
--- NOTE | 2021-02-11 | ECHO_ITS ---
Patient Info Name: Queenie Ambriz Age: 65 years : 1955 Gender: Female Ht: 64 in Wt: 170 lbs BSA: 1.89 m2 HR: 89 bpm BP: 161 / 72 mmHg Heart Rhythm: Sinus Rhythm Technical Quality: Fair Exam Date: 02/11/2021 9:51 AM Exam Location: [facility] Pulmonary Exam Room: [facility] Patient Status: Inpatient Admit Date: 02/10/2021 Staff Ordering Physician: Javier Gallo MD Muskrat Trapper: Rose Abreu RDCS Attending Provider: Javier Gallo MD Referring Physician: Cleo FUENTES; Exam Type: CA echo doppler color flow Study Info Indications - CHF Complete two-dimensional, color flow and Doppler transthoracic echocardiogram is performed. Summary 1. Complete two-dimensional, color flow and Doppler transthoracic echocardiogram is performed. 2. Left ventricular chamber dimension is normal. 3. Left ventricular systolic function is normal, estimated at 65-70%. 4. There is no increased left ventricular wall thickness. 5. The left ventricular diastolic function is grade II diastolic dysfunction. 6. Right ventricular chamber dimension is severely enlarged. 7. Right ventricular systolic function is reduced. 8. Left atrial chamber dimension is mildly enlarged. 9. There is mild aortic valve calcification. 10. There is mild mitral valve regurgitation. 11. Moderate pulmonary hypertension, estimated pulmonary arterial systolic pressure is 49 mmHg. 12. There is mild pulmonic regurgitation. 13. There is moderate tricuspid valve regurgitation. 14. Small hypermobility is seen on the ventricular side of the aortic valve. Consider Lambl's excrescence, small fibroelastoma, small vegetation or calcification. Consider TRU for further delineation. Left Ventricle Left ventricular chamber dimension is normal. Left ventricular systolic function is normal, estimated at 65-70%. There is no increased left ventricular wall thickness. The left ventricular diastolic function is grade II diastolic dysfunction. Right Ventricle Right ventricular chamber dimension is severely enlarged. Right ventricular systolic function is reduced. Left Atria Left atrial chamber dimension is mildly enlarged. Right Atria Right atrial chamber dimension is mildly enlarged. Atrial Septum Intact interatrial septum visualized by color flow imaging. Aortic Valve The aortic valve is trileaflet. There is no aortic valve stenosis. There is trace aortic valve regurgitation. There is mild aortic valve calcification. Pulmonic Valve The pulmonic valve is normal. There is no pulmonic valve stenosis. There is mild pulmonic regurgitation. Mitral Valve The mitral valve has normal leaflets. There is no mitral valve stenosis. There is mild mitral valve regurgitation. Tricuspid Valve The tricuspid valve leaflets are normal. There is no significant tricuspid valve stenosis. There is moderate tricuspid valve regurgitation. Moderate pulmonary hypertension, estimated pulmonary arterial systolic pressure is 49 mmHg. Other Findings Small hypermobility is seen on the ventricular side of the aortic valve. Consider Lambl's excrescence, small fibroelastoma, small vegetation or calcification. Consider TRU for further delineation. Pericardium/Pleural The pericardium appears normal. There is no pericardial effusion. Inferior Vena Cava Normal inferior vena cava with <50% collapse upon inspiration consistent with elevated right atrial pressure, 10 mmHg. Aorta The aortic root size at
[2021-02-11] MEDS: ALBUTEROL SULFATE NEB 2.5 MG/0.5 ML INH INHALATION ×2 (00:59→07:40)
[2021-02-11] MEDS: IPRATROPIUM BR 0.02% INH SOLN 0.5 MG/2.5 ML VIAL INHALATION ×2 (00:59→07:40)
[2021-02-11] MEDS: oxyCODONE HCL (*CRX) 5 MG TAB IR 10 MG PO (02:57)
[2021-02-11] MEDS: BENZONATATE 100 MG CAPSULE 200 MG PO ×2 (02:59→08:02)
[2021-02-11] MEDS: busPIRone HCL 5 MG TABLET 15 MG PO ×2 (05:14→13:45)
[2021-02-11] MEDS: methylPREDNISolone SOD SUCC 40 MG VIAL IV PUSH (05:15)
[2021-02-11] MEDS: AZTREONAM 1 GM in DEXTROSE 5% IN WATER 50 ML 100 ML IVPB (05:15)
[2021-02-11 06:46] LABS: Basophils Percent Auto 0.2 % (0.2-1.2); Hematocrit 28.2 % (37.0-47.0); Hemoglobin 8.7 g/dL (12.0-15.0); Immature Granulocyte Absolute 0.09 K/mm3 (0.00-0.031); Lymphocytes Absolute Auto 0.61 K/mm3 (0.9-3.2); Lymphocytes Percent Auto 6.7 % (18.3-44.2); Mean Corpuscular HGB Conc 30.9 g/dl (32-36); Mean Corpuscular Volume 87.6 fl (80-100); Mean Platelet Volume 9.9 fl (7.4-10.4); Monocytes Absolute Auto 0.4 K/mm3 (0.1-0.6); Monocytes Percent Auto 4.7 % (2.6-8.5); Neutrophils Absolute Auto 7.9 K/mm3 (1.3-6.7); Neutrophils Percent Auto 87.4 % (45.5-73.1); Platelet Count Result 224 k/mm3 (150-375); Red Blood Count 3.22 M/mm3 (4.2-5.4); Red Cell Distribution Width 14.1 % (11.5-14.5); White Blood Count 9.1 K/mm3 (4.5-10.0)
--- NOTE | 2021-02-11 06:47 | PM.IMPN ---
Progress Note: A&P Additional Plan START OF DOCTOR MARCI?S PROGRESS NOTE Subjective: Overnight the patient complains of occasional cough which is nonproductive. Aside from this she endorses no complaints. She denies fever, rigors, nausea, vomiting, wheeze, abdominal pain, chest pain. She indicates that her respiratory status is at her baseline. I have explained to the patient her current medical condition plan of care I have answered all her questions Objective: General: -Alert -No acute distress -No dyspnea -No tachypnea Heart: -iRegular rate -iRegular rhythm -No murmurs -No gallops -No rubs Lungs: -No wheeze -No rhonchi -No rales -distant breath sounds bilaterally Abdomen: -Normal bowel sounds in all four quadrants -No rebound -No guarding -No tenderness Extremities: -2/4 pulse in all four extremities -No clubbing -No cyanosis -1+ bipedal edema Additional Details / Additional Findings / Exceptions / Miscellaneous: Pertinent Laboratory Results / Pertinent Radiology Results / Pertinent Diagnostic Results / Pertinent Vital Signs: Blood pressure 161/72, pulse 44, patient saturating 96% on 3 L. Morning labs pending 3 Assessment / Plan: Pneumonia. Azithromycin 5 mg IV daily plus aztreonam 1 g IV q.8 hours plus albuterol 2.5 mg nebulized q.4 hours post Atrovent nebulized q.6 hours Pulmonary fibrosis/COPD, patient O2 dependent 2 L. Albuterol 2.5 mg nebulized q.4 hours plus aztreonam 1 g IV q.8 hours plus Ativan oral 40 mg IV q.8 hours Paroxysmal atrial fibrillation Chronic pain Depression. Zoloft 100 mg p.o. daily Lung nodule. Patient will require CT chest with IV contrast in May 2021 for reassessment Anxiety. BuSpar 15 mg p.o. q.8 hours plus Klonopin 1 mg p.o. q.h.s. Muscle spasm. Flexeril 5 mg p.o. q.8 hours Hyperlipidemia. Lipitor 40 mg p.o. q.h.s. post Edgar 3 fatty acids 2 g p.o. b.i.d. Neuropathy. Gabapentin 100 mg p.o. q.8 hours Orthostatic hypotension Constipation Restless legs syndrome. Requip 0.5 mg p.o. q.h.s. Hypertension. Altace 1.25 mg p.o. daily plus metoprolol 50 mg p.o. b.i.d. Iron deficiency Anemia. Monitor hemoglobin level intermittently. Ferrous sulfate 325 mg p.o. b.i.d. plus vitamin-C 500 mg p.o. daily Hyponatremia, chronic. Will monitor sodium level intermittently. Hypokalemia. Monitor potassium levels intermittently and supplement as necessary Grade 1 diastolic dysfunction IBS. Bentyl 20 mg p.o. q.i.d. Seasonal allergies. Claritin 10 mg p.o. daily plus Flonase: 50 mcg per spray: 1 puff in each naris daily Smoker. Nicotine patch 21 mg daily. Patient will be counseled regarding smoking cessation GI prophylaxis. Protonix 40 mg p.o. daily DVT prophylaxis. Bilateral SCDs Disposition: The patient appears medically stable for discharge on this day of February 11, 2021 END OF DOCTOR MARCI?S PROGRESS NOTE Subjective Date/time seen: 02/11/21 06:47 Objective Data Vital Signs Vital Signs: Vital Signs - 24 hr 02/10/21 08:34 02/10/21 08:45 02/10/21 13:17 Temperature Pulse Rate 84 92 88 Respiratory Rate 20 20 20 Blood Pressure Pulse Oximetry 95 95 02/10/21 13:28 02/10/21 14:00 02/10/21 17:27 Temperature 97.6 F Pulse Rate 95 91 99 Respiratory Rate 22 H 20 24 H Blood Pressure 124/51 L Pulse Oximetry 94 02/10/21 17:37 02/10/21 20:00 02/10/21 21:46 Temperature Pulse Rate 94 83 Respiratory Rate 20 20 Blood Pressure Pulse Oximetry 94 94 02/10/21 21:54 02/10/21 22:00 02/11/21 00:59 Temperature 97.1 F L Pulse Rate 87 103 H 82 Respiratory Rate 20 20 20 Blood Pressure 166/73 H Pulse Oximetry 92 02/11/21 01:05 02/11/21 06:00 Temperature 96.7 F L Pulse Rate 84 104 H Respiratory Rate 20 20 Blood Pressure 161/72 H Pulse Oximetry 96 Intake/Output Intake/Output: Intake & Output 02/08/21 02/09/21 02/10/21 02/11/21 23:59 23:59 23:59 23:59
[2021-02-11 07:06] LABS: Anion Gap 9 mmol/L (8-16); Blood Urea Nitrogen 19 mg/dL (7-17); Carbon Dioxide 30 mmol/L (22-30); Chloride 96 mmol/L (98-107); Estimated CRCL calculation 67 ml/min; Estimated Glomerular Filt Rate > 60; Glucose 197 mg/dL (65-110); Potassium 3.7 mmol/L (3.4-5.0); Sodium 135 mmol/L (137-145)
[2021-02-11] MEDS: CYCLOBENZAPRINE HCL 5 MG TABLET PO ×2 (08:02→12:22)
[2021-02-11] MEDS: OMEGA 3 POLYUNSAT FATTY ACIDS 1 GM CAP 2 GM PO (08:02)
[2021-02-11] MEDS: ASPIRIN 81 MG ENTERIC TABLET PO (08:02)
[2021-02-11] MEDS: DICYCLOMINE HCL 10 MG CAPSULE 20 MG PO ×2 (08:02→12:22)
[2021-02-11] MEDS: NICOTINE (*PBKC) 21 MG PATCH 1 PATCH TRANSDERM (08:03)
[2021-02-11] MEDS: GABAPENTIN 400 MG CAPSULE 800 MG PO ×2 (08:03→12:22)
[2021-02-11] MEDS: SERTRALINE HCL 50 MG TABLET 100 MG PO (08:04)
[2021-02-11] MEDS: LORATADINE 10 MG TABLET PO (08:04)
[2021-02-11] MEDS: PANTOPRAZOLE 40 MG TABLET PO (08:04)
[2021-02-11] MEDS: FLUTICASONE PROPIONATE 0.05% NA SPR 16 GM BTL (*BKC) 1 SPRAY NASAL (08:05)
[2021-02-11] MEDS: CHOLECALCIFEROL 1,000 UNITS TABLET 1000 UNITS PO (08:05)
[2021-02-11] MEDS: ATORVASTATIN 40 MG TABLET PO (08:05)
[2021-02-11] MEDS: ACETAMINOPHEN 325 MG TABLET 650 MG PO (08:09)
[2021-02-11] MEDS: ASCORBIC ACID 500 MG TABLET PO (09:26)
[2021-02-11] MEDS: FERROUS SULFATE 324 MG TABLET PO (09:26)
--- NOTE | 2021-02-11 10:55 | PM.DS ---
DS: Admitting Diagnosis Discharge Date 10:50 a.m. on February 11, 2021 Admitting Diagnosis Pneumonia DS: Summary Hospital Course Hospital Course: See discharge summary Time Spent with Patient Time attestation: Total time spent providing and/or coordinating discharge services: START OF DOCTOR MIR DISCHARGE SUMMARY Date of Admission: February 10, 2020 Date of Discharge: 1056 on February 11, 2021 Primary Diagnosis: Pneumonia Secondary Diagnosis: Pulmonary fibrosis/COPD, patient dependent 2 L Paroxysmal atrial fibrillation Chronic pain Depression Lung nodule Anxiety Muscle spasm Hyperlipidemia Neuropathy Orthostatic hypotension Constipation Remy Fleissner Hypertension Iron deficiency anemia Hyponatremia, chronic Hypokalemia, status post treatment Grade 1 diastolic dysfunction IBS Seasonal allergies Smoker Consultations: None Disposition: The patient will be advised follow-up with primary care physician 7-10 days post discharge for post hospitalization evaluation. Patient will need to schedule a CT chest with IV contrast with her primary care physician for May 2021 for diagnosis of pulmonary nodule Discharge Medications: Flexeril 5 mg p.o. t.i.d. Zetia 10 mg p.o. daily Gabapentin air mg p.o. t.i.d. DuoNeb q.i.d. Zofran 4 mg p.o. q.6 hours p.r.n. nausea/vomiting Seroquel 100 mg p.o. b.i.d. Proventil HFA: 90 microsphere spray: 1 puff q.6 hours p.r.n. shortness of breath/wheeze Aspirin 81 mg p.o. daily Lipitor 40 mg p.o. q.h.s. BuSpar 15 mg p.o. q.8 hours Vitamin-D 1000 IU p.o. daily Prednisone 10 mg PO: 4 tabs daily x3 days then 3 tabs at x3 days then 2 tabs daily x3 days then 1 tab daily x3 days. Quantity sufficient. 0 refills Vitamin-C 500 mg p.o. daily Levaquin 500 mg p.o. daily. Quantity 5. 0 refills Klonopin 1 mg p.o. q.h.s. Bentyl 20 mg p.o. Q i.d. Flonase: 50 micron Sineff spray: 1 puff Najib daily The CPAP 2 g p.o. b.i.d. Claritin 10 mg p.o. daily Melatonin 3 mg p.o. q.h.s. Eighteen patch 21 mg daily Prilosec 20 mg p.o. daily Oxycodone 5 mg p.o. q.8 hours p.r.n. pain Ramipril 1.25 mg p.o. daily Requip 0.5 mg p.o. daily Zoloft 100 mg p.o. daily Metoprolol 50 mg p.o. b.i.d. END OF DOCTOR MARCI?S DISCHARGE SUMMARY DS: Data Data Completed and Pending Labs on day of discharge: Labs from last 24 hours 02/11/21 02/11/21 06:23 06:23 WBC 9.1 RBC 3.22 L Hgb 8.7 L Hct 28.2 L MCV 87.6 MCH 27.0 MCHC 30.9 L RDW 14.1 Plt Count 224 MPV 9.9 Immature Gran % (Auto) 1.0 H Neut % (Auto) 87.4 H Lymph % (Auto) 6.7 L [place] % (Auto) 4.7 Eos % (Auto) 0.0 Baso % (Auto) 0.2 Lymph # (Auto) 0.61 L [place] # (Auto) 0.4 Eos # (Auto) 0.0 Baso # (Auto) 0.0 Abs Immat Gran (auto) 0.09 H Absolute Neuts (auto) 7.9 H Absolute Nucleated RBC 0.0 Nucleated RBC % 0.0 Sodium 135 L Potassium 3.7 Chloride 96 L Carbon Dioxide 30 Anion Gap 9 BUN 19 H Creatinine 0.80 Estim Creat Clear Calc 67 Estimated GFR > 60 Glucose 197 H Calcium 9.0 Preliminary micro results at discharge 02/09/21 19:47 Blood Culture - Preliminary Blood 02/09/21 19:35 Blood Culture - Preliminary Blood Discharge Plan Discharge Discharging Clinician: Dr. Samuels Patient Disposition: SNF Activity: as tolerated Diet: low sodium, low cholesterol and low fat Discharge Instructions: The patient is advised follow-up with her primary care physician 7-10 days post discharge for post hospitalization evaluation. Patient will need to schedule CT chest with IV contrast with her primary care physician for May 2021 for diagnosis pulmonary nodule Patient Instructions: Heart Failure (GEN), COPD (Chronic Obstructive Pulmonary Disease) (GEN), Safe Use of Anticoagulants (GEN) Stand Alone Forms: General
[2021-02-11] MEDS: METOPROLOL TARTRATE 50 MG TAB PO (10:58)
[2021-02-11] MEDS: ALBUTEROL SULFATE (*SP) AEROSOL 1 PUFF 2 PUFF INHALATION (11:59)
== END 2021-02-11 14:10 | DRG 193 ==
LOC: ANHED 21:11 → ANH3MEDSUR 21:38
PROVIDERS: Emergency Medicine; Physician Assistant; Admitting Provider Internal Medicine; Emergency Provider Emergency Medicine; PCP Nurse Practitioner; Visit Provider Internal Medicine
DX: J18.9 Pneumonia, unspecified organism (principal); J96.21 Acute and chronic respiratory failure with hypoxia; I50.30 Unspecified diastolic (congestive) heart failure; E87.1 Hypo-osmolality and hyponatremia; J84.10 Pulmonary fibrosis, unspecified; J43.9 Emphysema, unspecified; I48.0 Paroxysmal atrial fibrillation; E87.8 Other disorders of electrolyte and fluid balance, not elsewhere classified; E86.0 Dehydration; E87.6 Hypokalemia; F32.A Depression, unspecified; F41.9 Anxiety disorder, unspecified; E11.42 Type 2 diabetes mellitus with diabetic polyneuropathy; R91.1 Solitary pulmonary nodule; G89.4 Chronic pain syndrome; M62.838 Other muscle spasm; E78.5 Hyperlipidemia, unspecified; I95.1 Orthostatic hypotension; G25.81 Restless legs syndrome; D64.9 Anemia, unspecified; K58.1 Irritable bowel syndrome with constipation; J30.2 Other seasonal allergic rhinitis; Z79.84 Long term (current) use of oral hypoglycemic drugs; Z79.899 Other long term (current) drug therapy; Z87.891 Personal history of nicotine dependence; Z99.81 Dependence on supplemental oxygen
CPT/HCPCS: 36415; 36600; 71045; 71250; 80048; 82728; 82805; 83540; 83550; 83605; 83880; 84484; 85025; 85610; 85730; 87040; 93005; 93306; 94640; 96361; 96365; 96366; 96367; 96375; 96376; 99285; A9270; G0378; J0456; J2920; J7030